=== PATIENT | female | born 1995 | race Hispanic/Latino ===

== ENCOUNTER 2019-02-03 13:03 | Emergency (ER) | payer SELFPAY ==
[2019-02-03 14:32] LABS: Absolute Lymphocytes (CBC) 2.3 K/uL (0.7-4.9); Basophils % 0.5 % (0-1.3); Hematocrit 40.1 % (36.0-45.0); Lymphocytes % 38.2 % (15.3-44.8); MPV 7.1 fL (7.6-11.3); RBC Red Blood Cell Count 4.62 M/uL (3.86-4.86)
[2019-02-03 14:51] LABS: BUN Blood Urea Nitrogen 11 mg/dL (7-18); Bicarbonate 26 mmol/L (21-32); Glucose Level 316 mg/dL (74-106); Potassium 3.7 mmol/L (3.5-5.1); Sodium Level 136 mmol/L (136-145)
--- NOTE | 2019-02-03 14:56 | EDPHYS ---
Physician Documentation [facility] Name: Florence Anguiano Age: 23 yrs Sex: Female : 1995 Arrival Date: 02/03/2019 Time: 13:06 Bed 28 Private MD: ED Physician Ross Kearns HPI: 02/03 13:35 This 23 yrs old Female presents to ER via Ambulatory with complaints of pm1 Vaginal Bleeding. 13:35 The patient presents with vaginal bleeding that is with clots. Onset: The pm1 symptoms/episode began/occurred last night. Modifying factors: The symptoms are alleviated by nothing, the symptoms are aggravated by nothing. Associated signs and symptoms: Pertinent negatives: diarrhea, dysuria, fever, nausea, urinary frequency, vaginal discharge, vomiting. Severity of symptoms: in the emergency department the symptoms have improved. The patient is sexually active. The patient's method of control includes nothing. 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 - Social history:: Smoking status: Patient/guardian denies using tobacco. - Ebola Screening: : Patient denies travel to an Ebola-affected area in the 21 days before illness onset. ROS: 14:04 Positive for vaginal bleeding, Negative for burning with urination, vaginal pm1 discharge. 14:04 Constitutional: Negative for fever, chills, and weight loss, Cardiovascular: Negative for chest pain, palpitations, and edema, Respiratory: Negative for shortness of breath, cough, wheezing, and pleuritic chest pain, Abdomen/GI: Negative for abdominal pain, nausea, vomiting, diarrhea, and constipation, Back: Negative for injury and pain, MS/Extremity: Negative for injury and deformity, Skin: Negative for injury, rash, and discoloration, Neuro: Negative for headache, weakness, numbness, tingling, and seizure. Exam: 14:04 Constitutional: This is a well developed, well nourished patient who is awake, alert, pm1 and in no acute distress. Head/Face: Normocephalic, atraumatic. Neck: Trachea midline, no thyromegaly or masses palpated, and no cervical lymphadenopathy. Supple, full range of motion without nuchal rigidity, or vertebral point tenderness. No Meningismus. Chest/axilla: Normal chest wall appearance and motion. Nontender with no deformity. No lesions are appreciated. Cardiovascular: Regular rate and rhythm with a normal S1 and S2. No gallops, murmurs, or rubs. Normal PMI, no JVD. No pulse deficits. Respiratory: Lungs have equal breath sounds bilaterally, clear to auscultation and percussion. No rales, rhonchi or wheezes noted. No increased work of breathing, no retractions or nasal flaring. Abdomen/GI: Soft, non-tender, with normal bowel sounds. No distension or tympany. No guarding or rebound. No evidence of tenderness throughout. Back: No spinal tenderness. No costovertebral tenderness. Full range of motion. Skin: Warm, dry with normal turgor. Normal color with no rashes, no lesions, and no evidence of cellulitis. MS/ Extremity: Pulses equal, no cyanosis. Neurovascular intact. Full, normal range of motion. 14:04 Neuro: Orientation: is normal, Motor: is normal, moves all fours. Vital Signs: 13:19 BP 129 / 67; Pulse 90; Resp 18; Temp 97.8; Pulse Ox 96% on R/A; Weight 108.86 kg; ph Height 5 ft. 2 in. (157.48 cm); Pain 0/10; 13:19 Body Mass Index 43.90 (108.86 kg, 157.48 cm) ph MDM: 14:01 Patient medically screened. pm1 14:54 Data reviewed: vital signs. Data interpreted: Pulse oximetry: on room air is 96 %. pm1 Interpretation: normal. Counseling: I had a detailed discussion with the patient and/or guardian regarding: the historical points, exam findings, and any diagnostic results supporting the discharge/admit diagnosis, lab results, the need for outpatient follow up, to return to the emergency department if symptoms worsen or persist or if there are any questions or concerns that arise at home. 02/03 14:02 Order name: Urine Dipstick--Ancillary (enter results); Complete Time: 15:30 em1 02/03 14:02 Order name: Urine --Ancillary (enter results); Complete Time: 15:30 em1 02/03 13:31 Order name: Urine Test (obtain specimen); Complete Time: 14:00 pm1 02/03 13:31 Order name: Urine Dipstick-Ancillary (obtain specimen); Complete Time: 14:00 pm1 02/03 14:02 Order name: CBC with Diff; Complete Time: 14:54 pm1 02/03 14:02 Order name: BMP; Complete Time: 14:54 pm1 Administered Medications: No medications were administered Disposition: 02/04 07:29 Co-signature as Attending Physician, Ross Kearns MD I agree with the assessment and kdr plan of care. Disposition: 02/03/19 14:55 Discharged to Home. Impression: Abnormal uterine and vaginal bleeding, unspecified. - Condition is Stable. - Discharge Instructions: Abnormal Uterine Bleeding. - Medication Reconciliation Form, Thank You Letter, Antibiotic Education, Prescription Opioid Use form. - Follow up: Emergency Department; When: As needed; Reason: Worsening of condition. Follow up: Private Physician; When: 2 - 3 days; Reason: Recheck today's complaints, Continuance of care, Re-evaluation by your physician. - Problem is new. - Symptoms have improved. Signatures: Dispatcher [employer] EDMS Shani Jasso RN RN aj1 Ross Kearns MD MD [facility] Anais Meléndez RN RN Salvador Nugent NP TRANSIT PLANNING MANAGER pm1 Corrections: (The following items were deleted from the chart) 02/03 15:20 14:55 02/03/2019 14:55 Discharged to Home. Impression: Abnormal uterine and vaginal aj1 bleeding, unspecified. Condition is Stable. Forms are Medication Reconciliation Form, Thank You Letter, Antibiotic Education, Prescription Opioid Use. Follow up: Emergency Department; When: As needed; Reason: Worsening of condition. Follow up: Private Physician; When: 2 - 3 days; Reason: Recheck today's complaints, Continuance of care, Re-evaluation by your physician. Problem is new. Symptoms have improved. pm1
--- NOTE | 2019-02-03 14:56 | ER ---
Nurse's Notes [facility] Name: Florence Anguiano Age: 23 yrs Sex: Female : 1995 Arrival Date: 02/03/2019 Time: 13:06 Bed 28 Private MD: Diagnosis: Abnormal uterine and vaginal bleeding, unspecified Presentation: 02/03 13:17 Presenting complaint: Patient states: Vaginal bleeding w/ clots that began yesterday, ph cramping last night, reports irregular menses w/ possibility of . Transition of care: patient was not received from another setting of care. Onset of symptoms was February 03, 2019. Risk Assessment: Do you want to hurt yourself or someone else? Patient reports no desire to harm self or others. Initial Sepsis Screen: Does the patient meet any 2 criteria? No. Patient's initial sepsis screen is negative. Does the patient have a suspected source of infection? No. Patient's initial sepsis screen is negative. Care prior to arrival: None. 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 - Social history:: Smoking status: Patient/guardian denies using tobacco. - Ebola Screening: : Patient denies travel to an Ebola-affected area in the 21 days before illness onset. Screenin:03 Abuse screen: Denies threats or abuse. Denies injuries from another. Nutritional aj1 screening: No deficits noted. Tuberculosis screening: No symptoms or risk factors identified. 15:19 Fall Risk None identified. aj1 Assessment: 14:03 General: Appears in no apparent distress. comfortable, Behavior is calm, cooperative, aj1 appropriate for age. Pain: Denies pain. Neuro: Level of Consciousness is awake, alert, obeys commands, Oriented to person, place, time, situation. Cardiovascular: Patient's skin is warm and dry. Respiratory: Airway is patent Respiratory effort is even, unlabored, Respiratory pattern is regular, symmetrical. GI: No signs and/or symptoms were reported involving the gastrointestinal system. Patient currently denies abdominal pain. : Urine is clear, blood tinged, Reports vaginal bleeding that is bright red, with clots. EENT: No signs and/or symptoms were reported regarding the EENT system. Derm: No signs and/or symptoms reported regarding the dermatologic system. Skin is pink, warm \T\ dry. normal. Musculoskeletal: No signs and/or symptoms reported regarding the musculoskeletal system. Circulation, motion, and sensation intact. 15:18 Reassessment: Patient appears in no apparent distress at this time. No changes from aj1 previously documented assessment. Patient and/or family updated on plan of care and expected duration. Pain level reassessed. Patient is alert, oriented x 3, equal unlabored respirations, skin warm/dry/pink. Vital Signs: 13:19 BP 129 / 67; Pulse 90; Resp 18; Temp 97.8; Pulse Ox 96% on R/A; Weight 108.86 kg; ph Height 5 ft. 2 in. (157.48 cm); Pain 0/10; 13:19 Body Mass Index 43.90 (108.86 kg, 157.48 cm) ph ED Course: 13:06 Patient arrived in ED. mr 13:18 Triage completed. ph 13:19 Arm band placed on Patient placed in waiting room, Patient notified of wait time. ph 13:28 Kacy Montilla, RN is Primary Nurse. ca1 13:31 Salvador Nugent NP is PHCP. pm1 13:31 Ross Kearns MD is Attending Physician. pm1 14:02 Shani Jasso, CHELSY is Primary Nurse. aj1 14:03 Patient has correct armband on for positive identification. Bed in low position. Call aj1 light in reach. Side rails up X 1. 14:03 No provider procedures requiring assistance completed. aj1 14:15 Initial lab(s) drawn, by va, sent to lab. Inserted saline lock: 20 gauge in left lt1 antecubital area, using aseptic technique. 15:19 IV discontinued, intact, bleeding controlled, No redness/swelling at site. Pressure aj1 dressing applied. Administered Medications: No medications were administered Outcome: 14:55 Discharge ordered by . pm1 15:19 Discharged to home ambulatory. aj1 15:19 Condition: good 15:19 Discharge instructions given to patient, Instructed on discharge instructions, follow up and referral plans. Demonstrated understanding of instructions, follow-up care. 15:20 Patient left the ED. aj1 Signatures: Shani Jasso RN RN aj1 Block, Anyi mr Anais Meléndez RN RN ph Salvador Nugent, LABELING ASSOCIATE LABELING ASSOCIATE pm1 Kacy Montilla RN RN [facility] Ebony Lamar lt1
[2019-02-03 15:17] LABS: Urine Blood 3+ (NEG); Urine Glucose 2+ (NEG); Urine Protein TRACE (NEG)
[2019-02-03 17:03] VITALS: BP 129/67; TEMP 97.8; O2SAT 96
== END 2019-02-03 15:20 | disposition home or self-care (01) ==
LOC: ER 13:03
DX: N93.9 Abnormal uterine and vaginal bleeding, unspecified (principal); Z88.6 Allergy status to analgesic agent
CPT/HCPCS: 36415; 80048; 81003; 81025; 85025; 99283

== ENCOUNTER 2020-04-01 21:55 | Emergency (ER) | payer SELFPAY ==
--- OUTSIDE RECORDS SUMMARY | 2020-04-01 21:58 | XMS REPORT | Continuity of Care Document ---
:1995 Author Organization [facility] t Address [address] [place] [address] Care Team Providers Name Role Phone Unavailable Unavailable Unavailable Problems This patient has no known problems. Allergies, Adverse Reactions, Alerts This patient has no known allergies or adverse reactions. Medications This patient has no known medications. Procedures This patient has no known procedures. Encounters Start End Encounter Admission Attending Care Care Encounter Source Date/Time Date/Time Type Type Clinicians Facility Department ID 2018-09-22 2018-09-22 Emergency E [id number] [facility] 23:58:00 23:58:00 Results This patient has no known results.
[2020-04-01] MEDS ORDERED: ONDANSETRON 4 MG/2 ML VIAL ONE (23:02)
[2020-04-01] MEDS ORDERED: NA CHLORIDE 0.9% 1,000 ML ONE (23:03)
[2020-04-01 23:30] LABS: ALT/SGPT 119 U/L (12-78); AST/SGOT 84 U/L (15-37); Albumin 3.7 g/dL (3.4-5.0); Alkaline Phosphatase 62 U/L (45-117); BUN Blood Urea Nitrogen 12 mg/dL (7-18); Bicarbonate 29 mmol/L (21-32); Bilirubin Direct < 0.1 mg/dL (0-0.2); Bilirubin Total 0.3 mg/dL (0.2-1.0); Glucose Level 153 mg/dL (74-106); Sodium Level 138 mmol/L (136-145)
[2020-04-01 23:41] LABS: Absolute Lymphocytes (CBC) 2.8 K/uL (0.7-4.9); Basophils % 0.7 % (0-1.3); Hematocrit 43.7 % (36.0-45.0); Lymphocytes % 38.7 % (15.3-44.8); MPV 7.5 fL (7.6-11.3); RBC Red Blood Cell Count 4.96 M/uL (3.86-4.86)
[2020-04-02 00:13] LABS: SARS-COV-2 RT PCR POSITIVE (NEGATIVE)
--- NOTE | 2020-04-02 01:11 | EDPHYS ---
Physician Documentation [facility] Name: Florence Anguiano Age: 24 yrs Sex: Female : 1995 Arrival Date: 04/01/2020 Time: 21:59 Bed 6 Private MD: ED Physician Fan De Los Santos HPI: 04/01 22:28 This 24 yrs old Female presents to ER via Ambulatory with complaints of Cough, mh7 Dizziness, Chest Congestion, Fever. 22:28 The patient or guardian reports cough, that is constant, described as moderate, flu mh7 symptoms, low-grade fever, myalgias. Onset: The symptoms/episode began/occurred 3 day(s) ago. Severity of symptoms: At their worst the symptoms were moderate, yesterday, in the emergency department the symptoms have improved, moderately. Modifying factors: The symptoms are alleviated by nothing, the symptoms are aggravated by nothing. Associated signs and symptoms: Pertinent positives: fever, nausea, sore throat, Pertinent negatives: chest pain, diarrhea, ear ache, vomiting. 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 - Social history:: Smoking status: Patient denies any tobacco usage or history of. ROS: 22:28 Eyes: Negative for injury, pain, redness, and discharge, Neck: Negative for injury, mh7 pain, and swelling, Cardiovascular: Negative for chest pain, palpitations, and edema, Back: Negative for injury and pain, : Negative for injury, bleeding, discharge, and swelling, MS/Extremity: Negative for injury and deformity, Skin: Negative for injury, rash, and discoloration, Neuro: Negative for headache, weakness, numbness, tingling, and seizure, Psych: Negative for depression, anxiety, suicide ideation, homicidal ideation, and hallucinations, Allergy/Immunology: Negative for hives, rash, and allergies, Endocrine: Negative for neck swelling, polydipsia, polyuria, polyphagia, and marked weight changes, Hematologic/Lymphatic: Negative for swollen nodes, abnormal bleeding, and unusual bruising. Exam: 22:28 Constitutional: This is a well developed, well nourished patient who is awake, alert, mh7 and in no acute distress. Head/Face: Normocephalic, atraumatic. Eyes: Pupils equal round and reactive to light, extra-ocular motions intact. Lids and lashes normal. Conjunctiva and sclera are non-icteric and not injected. Cornea within normal limits. Periorbital areas with no swelling, redness, or edema. ENT: Nares patent. No nasal discharge, no septal abnormalities noted. Tympanic membranes are normal and external auditory canals are clear. Oropharynx with no redness, swelling, or masses, exudates, or evidence of obstruction, uvula midline. Mucous membranes moist. Neck: Trachea midline, no thyromegaly or masses palpated, and no cervical lymphadenopathy. Supple, full range of motion without nuchal rigidity, or vertebral point tenderness. No Meningismus. Chest/axilla: Normal chest wall appearance and motion. Nontender with no deformity. No lesions are appreciated. Cardiovascular: Regular rate and rhythm with a normal S1 and S2. No gallops, murmurs, or rubs. Normal PMI, no JVD. No pulse deficits. Respiratory: Lungs have equal breath sounds bilaterally, clear to auscultation and percussion. No rales, rhonchi or wheezes noted. No increased work of breathing, no retractions or nasal flaring. Abdomen/GI: Soft, non-tender, with normal bowel sounds. No distension or tympany. No guarding or rebound. No evidence of tenderness throughout. Back: No spinal tenderness. No costovertebral tenderness. Full range of motion. Skin: Warm, dry with normal turgor. Normal color with no rashes, no lesions, and no evidence of cellulitis. MS/ Extremity: Pulses equal, no cyanosis. Neurovascular intact. Full, normal range of motion. Neuro: Awake and alert, GCS 15, oriented to person, place, time, and situation. Cranial nerves II-XII grossly intact. Motor strength 5/5 in all extremities. Sensory grossly intact. Cerebellar exam normal. Normal gait. Psych: Awake, alert, with orientation to person, place and time. Behavior, mood, and affect are within normal limits. Vital Signs: 22:08 BP 161 / 85; Pulse 98; Resp 16 S; Temp 98.6(TE); Pulse Ox 99% on R/A; Weight 108.86 kg ca1 (R); Height 5 ft. 2 in. (157.48 cm) (R); 23:30 BP 109 / 96; Pulse 79; Resp 18; Pulse Ox 98% on R/A; ea 04/02 00:21 BP 131 / 85; Pulse 79; Resp 18; Pulse Ox 99% on R/A; ea 01:23 BP 137 / 83; Pulse 79; Resp 17; Temp 98; Pulse Ox 100% on R/A; rv 04/01 22:08 Body Mass Index 43.90 (108.86 kg, 157.48 cm) ca1 MDM: 01:06 Differential Diagnosis: Bronchitis Influenza Upper Respiratory Infection Pharyngitis 7 Allergic Rhinitis Viral Syndrome Pneumonia. Data reviewed: vital signs, nurses notes, lab test result(s), CBC, electrolytes, Flu: negative urinalysis, UPT: negative EKG, radiologic studies, plain films. Data interpreted: Pulse oximetry: on room air is 99 %. Interpretation: normal. Counseling: I had a detailed discussion with the patient and/or guardian regarding: the historical points, exam findings, and any diagnostic results supporting the discharge/admit diagnosis, lab results, radiology results, the need for outpatient follow up, to return to the emergency department if symptoms worsen or persist or if there are any questions or concerns that arise at home. Response to treatment: the patient's symptoms have resolved after treatment, the patient's blood pressure is in an acceptable range, mental status has returned to baseline, the patient no longer shows bradycardia, the patient is not short of breath, the patient is not tachycardic, the patient's pain is gone, the patient's temperature has normalized. 01:10 Patient medically screened. [facility] 04/01 22:25 Order name: CBC with Diff; Complete Time: 23:55 [facility] 04/01 22:25 Order name: Basic Metabolic Panel; Complete Time: 23:55 [facility] 04/01 22:25 Order name: LFT's; Complete Time: 23:55 [facility] 04/01 22:25 Order name: Rapid Strep; Complete Time: 00:51 [facility] 04/01 22:25 Order name: Chest Single View XRAY [facility] 04/02 00:14 Order name: COVID-19/FLU A+B; Complete Time: 00:15 EDMS 04/02 00:41 Order name: Urine Dipstick--Ancillary (enter results) tt3 04/02 00:41 Order name: Urine --Ancillary (enter results) tt3 04/02 00:45 Order name: Throat Culture [facility] 04/01 22:25 Order name: Urine Dipstick-Ancillary (obtain specimen); Complete Time: 00:34 [facility] 04/01 22:25 Order name: Urine Test (obtain specimen); Complete Time: 00:34 [facility] 04/01 22:26 Order name: EKG - Nurse/Tech; Complete Time: 23:00 [facility] Administered Medications: 04/01 22:59 Drug: NS 0.9% 1000 ml Route: IV; Rate: 1000 ml; Site: right antecubital; ea 22:59 Drug: Zofran (Ondansetron) 4 mg Route: IVP; Site: right antecubital; ea 04/02 01:22 Follow up: Response: No adverse reaction rv :22 Drug: KeFLEX 500 mg Route: PO; rv : Follow up: Response: Medication administered at discharge. rv Disposition: 04/02/20 01:10 Discharged to Home. Impression: Coronavirus infection, unspecified, Urinary tract infection, site not specified. - Condition is Stable. - Discharge Instructions: Urinary Tract Infection, Adult, Bwdr-ec-Busn, Viral Respiratory Infection, [id number]-Ddeb, COVID-19. - Prescriptions for Zofran ODT 4 mg Oral tablet,disintegrating - place 1 tablet by TRANSLINGUAL route every 8 hours As needed; 6 tablet. Keflex 500 mg Oral Capsule - take 1 capsule by ORAL route every 12 hours for 7 days; 14 capsule. Zithromax Z- Jose 250 mg Oral Tablet - take 1 tablet by ORAL route as directed for 5 days Day 1 - take two (2) tablets one time. Day 2, 3, 4 , 5 take one (1) tablet once daily.; 6 tablet. Albuterol Sulfate 90 mcg/actuation - inhale 1-2 puff by INHALATION route every 4-6 hours; 1 Inhaler. - Medication Reconciliation Form, Thank You Letter, Antibiotic Education, Prescription Opioid Use, Work release form form. - Follow up: Private Physician; When: 1 - 2 days; Reason: Trouble breathing, Worsening of condition, Recheck today's complaints, Continuance of care, Re-evaluation by your physician. - Problem is new. - Symptoms have improved. Signatures: Dispatcher [employer] EDWI Sarah Ley, RN Jameel Bird ea, RN RN rv Acob, Cheryl RN RN Fan Cartagena MD MD [facility] Corrections: (The following items were deleted from the chart) 04/01 22:30 22:27 This 24 yrs old Female presents to ER via Ambulatory with complaints of 7 Cough, Dizziness, Chest Pain, Fever. [facility] 23:12 22:25 Influenza Screen (A \T\ B)+BA.LAB.BRZ ordered. EDWI EDWI 23:13 22:26 CORONAVIRUS+MR.LAB.BRZ ordered. [facility] 04/02 01:23 01:10 04/02/2020 01:10 Discharged to Home. Impression: Coronavirus infection, rv unspecified; Urinary tract infection, site not specified. Condition is Stable. Forms are Medication Reconciliation Form, Thank You Letter, Antibiotic Education, Prescription Opioid Use. Follow up: Private Physician; When: 1 - 2 days; Reason: Trouble breathing, Worsening of condition, Recheck today's complaints, Continuance of care, Re-evaluation by your physician. Problem is new. Symptoms have improved. [facility]
--- NOTE | 2020-04-02 01:11 | ER ---
Nurse's Notes [facility] Name: Florence Anguiano Age: 24 yrs Sex: Female : 1995 Arrival Date: 04/01/2020 Time: 21:59 Bed 6 Private MD: Diagnosis: Coronavirus infection, unspecified;Urinary tract infection, site not specified Presentation: 04/01 22:08 Chief complaint: Patient states: Feeling sick since yesterday. Cough, dizziness, ca1 headache, chest congestion, fever, nausea since yesterday. Coronavirus screen: Client denies travel out of the [place] in the last 14 days. chills, congestion, cough unrelated to allergies, headache, nausea, Client presents with at least one sign or symptom that may indicate coronavirus-19. Standard/surgical mask placed on the client. Provider contacted for isolation considerations. Ebola Screen: Patient negative for fever greater than or equal to 101.5 degrees Fahrenheit, and additional compatible Ebola Virus Disease symptoms Patient denies exposure to infectious person. Patient denies travel to an Ebola-affected area in the 21 days before illness onset. No symptoms or risks identified at this time. Initial Sepsis Screen: Does the patient meet any 2 criteria? No. Patient's initial sepsis screen is negative. Does the patient have a suspected source of infection? No. Patient's initial sepsis screen is negative. Risk Assessment: Do you want to hurt yourself or someone else? Patient reports no desire to harm self or others. Onset of symptoms was April 01, 2020. 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 - Social history:: Smoking status: Patient denies any tobacco usage or history of. Screenin:37 Abuse screen: Denies threats or abuse. Nutritional screening: No deficits noted. ea Tuberculosis screening: No symptoms or risk factors identified. Fall Risk IV access (20 points). Assessment: 22:30 General: Appears uncomfortable, Behavior is appropriate for age. Pain: Complains of ea pain in chest Pain does not radiate. Neuro: Level of Consciousness is awake, alert, obeys commands, Oriented to person, place, time, situation. Cardiovascular: Patient's skin is warm and dry. Respiratory: Airway is patent Respiratory effort is even, unlabored, Respiratory pattern is regular, symmetrical. Derm: Skin is pink, warm \T\ dry. Vital Signs: 22:08 BP 161 / 85; Pulse 98; Resp 16 S; Temp 98.6(TE); Pulse Ox 99% on R/A; Weight 108.86 kg ca1 (R); Height 5 ft. 2 in. (157.48 cm) (R); 23:30 BP 109 / 96; Pulse 79; Resp 18; Pulse Ox 98% on R/A; ea 04/02 00:21 BP 131 / 85; Pulse 79; Resp 18; Pulse Ox 99% on R/A; ea 01:23 BP 137 / 83; Pulse 79; Resp 17; Temp 98; Pulse Ox 100% on R/A; rv 04/01 22:08 Body Mass Index 43.90 (108.86 kg, 157.48 cm) ca1 ED Course: 04/01 21:59 Patient arrived in ED. cf2 22:02 Fan De Los Santos MD is Attending Physician. mh7 22:05 Sarah Ley, CHELSY is Primary Nurse. ea 22:10 Triage completed. ca1 22:11 Arm band placed on right wrist. ca1 22:30 Patient has correct armband on for positive identification. monitor worker on. Pulse ea ox on. NIBP on. 22:49 Chest Single View XRAY In Process Unspecified. EDMS 23:00 Inserted saline lock: 20 gauge in right antecubital area, using aseptic technique. ea 23:37 Patient maintains SpO2 saturation greater than 95% on room air. ea 04/02 01:23 No provider procedures requiring assistance completed. IV discontinued, intact, rv bleeding controlled, No redness/swelling at site. Pressure dressing applied. Administered Medications: 04/01 22:59 Drug: NS 0.9% 1000 ml Route: IV; Rate: 1000 ml; Site: right antecubital; ea 22:59 Drug: Zofran (Ondansetron) 4 mg Route: IVP; Site: right antecubital; ea 04/02 01:22 Follow up: Response: No adverse reaction rv 01:22 Drug: KeFLEX 500 mg Route: PO; rv : Follow up: Response: Medication administered at discharge. rv Outcome: 01:10 Discharge ordered by . mhAubree : Discharged to home ambulatory. rv : Condition: good : Discharge instructions given to patient, Instructed on discharge instructions, follow up and referral plans. medication usage, Demonstrated understanding of instructions, follow-up care, medications, Prescriptions given X 4. : Patient left the ED. rv Signatures: Dispatcher [employer] EDMS Sarah Ley RN Jameel Bird ea, RN RN Kacy Dumont RN RN Aroldo Roman 2 Fan De Los Santos MD MD mh7
[2020-04-02] MEDS ORDERED: CEPHALEXIN 250 MG CAP ONE (01:26)
[2020-04-02 01:31] VITALS: BP 137/83; TEMP 98; O2SAT 100
[2020-04-02 02:58] LABS: Urine Blood 2+ (NEG); Urine Glucose NEGATIVE (NEG); Urine Protein NEGATIVE (NEG); Urine Specific Gravity 1.025 (1.005-1.030)
--- NOTE | 2020-04-02 11:01 | RAD REPORT ---
EXAM DESCRIPTION: RAD - Chest Single View - 04/01/2020 10:49 pm Chest Single View CLINICAL HISTORY: 24 years Female COUGH COMPARISON: None. FINDINGS: The cardiomediastinal silhouette appears unremarkable. No consolidating infiltrates or pleural effusions. No pneumothorax. IMPRESSION: No acute abnormality is identified. Electronically signed by: Noe Dunbar MD 04/02/2020 12:13 AM SHIPPING [employer] RECEIVING [employer]AD Due to temporary technical issues with the PACS/Fluency reporting system, reports are being signed by the in house radiologists without review as a courtesy to insure prompt reporting. The interpreting radiologist is fully responsible for the content of the report.
--- NOTE | 2020-04-02 11:28 | EKG ---
Test Date: 2020-04-01 Test Time: 22:55:43 Hvac Engineer: LUCRETIA MEASUREMENT RESULTS: Intervals: Rate: 80 MO: 148 QRSD: 82 QT: 376 QTc: 433 [place]: P: 22 MO: 148 QRS: 44 T: 28 INTERPRETIVE STATEMENTS: Normal sinus rhythm Normal ECG No previous ECG available for comparison Electronically Signed On 04-02-20 11:27:14 BEAD PREPARER by Ronald Del Rosario
== END 2020-04-02 01:23 | disposition home or self-care (01) ==
LOC: ER 21:55
DX: U07.1 COVID-19 (principal); N39.0 Urinary tract infection, site not specified; E11.9 Type 2 diabetes mellitus without complications
CPT/HCPCS: 0240U; 36415; 71045; 80048; 80076; 81003; 81025; 85025; 87070; 87081; 93005; 96374; 99285; J2405; J7030

== ENCOUNTER 2020-06-28 14:05 | Emergency (ER) | payer SELFPAY ==
--- OUTSIDE RECORDS SUMMARY | 2020-06-28 14:08 | XMS REPORT | Continuity of Care Document ---
:1995 Author Organization [facility] t Address [address] [place] [address] Care Team Providers Name Role Phone Unavailable [...]
--- NOTE | 2020-06-28 15:52 | EDPHYS ---
Physician Documentation [facility] Name: Florence Anguiano Age: 24 yrs Sex: Female : 1995 Arrival Date: 06/28/2020 Time: 14:12 Bed Waiting Private MD: ED Physician Ross Kearns HPI: 06/28 15:48 This 24 yrs old Female presents to ER via Ambulatory with complaints of jmm Allergic Reaction. 15:48 The patient presents with itching, localized swelling, rash, redness of skin. Onset: jmm The symptoms/episode began/occurred gradually, just prior to arrival. Associated signs and symptoms: Pertinent positives: hives, Pertinent negatives: shortness of breath, vomiting. Possible causes: At home the patient or guardian has treated the symptoms with Benadryl. The patient has experienced similar episodes in the past. Patient states symptoms have improved. Denies vomiting or sob. Historical: - Allergies: 15:16 Tylenol; iw - PMHx: 15:16 Diabetes - NIDDM; iw - PSHx: 15:16 None; iw ROS: 15:48 Constitutional: Negative for fever, chills, and weight loss, Cardiovascular: Negative jmm for chest pain, palpitations, and edema, Respiratory: Negative for shortness of breath, cough, wheezing, and pleuritic chest pain. 15:48 Skin: Positive for rash. 15:48 All other systems are negative. Exam: 15:48 Constitutional: This is a well developed, well nourished patient who is awake, alert, jmm and in no acute distress. 15:48 Neck: Trachea midline, Supple Chest/axilla: Normal chest wall appearance and motion. Cardiovascular: Regular rate and rhythm. No edema appreciated Respiratory: Normal respirations, no respiratory distress appreciated Abdomen/GI: Non distended, soft Back: Normal ROM Skin: General appearance color normal MS/ Extremity: Moves all extremities, no obvious deformities appreciated, no edema noted to the lower extremities Neuro: Awake and alert, normal gait Psych: Behavior is normal, Mood is normal, Patient is cooperative and pleasant 15:48 Head/face: Noted is erythema, that is mild. 15:48 ENT: Posterior pharynx: is normal, no edema appreciated. Vital Signs: 15:14 BP 146 / 90; Pulse 89; Resp 16; Temp 97.7; Pulse Ox 100% on R/A; iw MDM: 15:50 Data reviewed: vital signs, nurses notes. Counseling: I had a detailed discussion with shorty the patient and/or guardian regarding: the historical points, exam findings, and any diagnostic results supporting the discharge/admit diagnosis, the need for outpatient follow up, to return to the emergency department if symptoms worsen or persist or if there are any questions or concerns that arise at home. ED course: Patient is alert and non toxic in appearance. No pharyngeal edema appreciated, I do not suspect anaphylaxis. Patient given strict return precautions. Patient understood and agrees with the plan of care. . 15:51 Patient medically screened. [facility] Administered Medications: No medications were administered Disposition: 06/28/20 15:51 Discharged to Home. Impression: Urticaria, unspecified. - Condition is Stable. - Discharge Instructions: Hives. - Prescriptions for Hydroxyzine HCl 25 mg Oral Tablet - take 1 tablet by ORAL route every 6 hours As needed; 30 tablet. Prednisone 20 mg Oral Tablet - take 3 tablet by ORAL route once daily for 5 days; 15 tablet. - Medication Reconciliation Form, Thank You Letter, Antibiotic Education, Prescription Opioid Use, Work release form form. - Follow up: Private Physician; When: 2 - 3 days; Reason: Recheck today's complaints, Continuance of care, Re-evaluation by your physician. Addendum: 06/30/2020 07:18 Co-signature as Attending Physician, Ross Kearns MD I agree with the assessment and k dr plan of care. Signatures: Ross Kearns MD MD [facility] Gutierrez Lou PA PA [facility] Maye Monzon RN RN iw Corrections: (The following items were deleted from the chart) 06/28 16:10 15:51 06/28/2020 15:51 Discharged to Home. Impression: Urticaria, unspecified. iw Condition is Stable. Forms are Medication Reconciliation Form, Thank You Letter, Antibiotic Education, Prescription Opioid Use. Follow up: Private Physician; When: 2 - 3 days; Reason: Recheck today's complaints, Continuance of care, Re-evaluation by your physician. shorty
--- NOTE | 2020-06-28 15:52 | ER ---
Nurse's Notes [facility] Name: Florence Anguiano Age: 24 yrs Sex: Female : 1995 Arrival Date: 06/28/2020 Time: 14:12 Bed Waiting Private MD: Diagnosis: Urticaria, unspecified Presentation: 06/28 15:14 Chief complaint: Patient states: was at work today and started breaking out in her iw face, was having an allergic reaction to something, had redness in her face, took a Benadryl and it got better but her job wants her to be cleared. Coronavirus screen: At this time, the client does not indicate any symptoms associated with coronavirus-19. Ebola Screen: Patient negative for fever greater than or equal to 101.5 degrees Fahrenheit, and additional compatible Ebola Virus Disease symptoms Patient denies exposure to infectious person. Patient denies travel to an Ebola-affected area in the 21 days before illness onset. No symptoms or risks identified at this time. Initial Sepsis Screen: Does the patient meet any 2 criteria? No. Patient's initial sepsis screen is negative. Does the patient have a suspected source of infection? No. Patient's initial sepsis screen is negative. Risk Assessment: Do you want to hurt yourself or someone else? Patient reports no desire to harm self or others. Onset of symptoms was June 28, 2020. 15:14 Method Of Arrival: Ambulatory 15:14 Acuity: HELENA 4 iw Historical: - Allergies: 15:16 Tylenol; iw - PMHx: 15:16 Diabetes - NIDDM; iw - PSHx: 15:16 None; iw Vital Signs: 15:14 BP 146 / 90; Pulse 89; Resp 16; Temp 97.7; Pulse Ox 100% on R/A; iw ED Course: 14:12 Patient arrived in ED. am2 15:16 Triage completed. iw 15:18 Arm band placed on. 15:48 Gutierrez Lou PA is PHCP. shorty 15:48 Ross Kearns MD is Attending Physician. shorty Administered Medications: No medications were administered Outcome: 15:51 Discharge ordered by . shorty 16:10 Patient left the ED. Signatures: Gutierrez Lou PA PA jmm Williams, Irene, RN RN iw Best, Mirian am2
== END 2020-06-28 16:10 | disposition home or self-care (01) ==
LOC: ER 14:05
DX: L50.9 Urticaria, unspecified (principal); E11.9 Type 2 diabetes mellitus without complications; Z88.6 Allergy status to analgesic agent
CPT/HCPCS: 99281

== ENCOUNTER 2020-12-27 13:21 | Emergency (ER) | payer SELFPAY ==
--- NOTE | 2020-12-27 14:10 | RAD REPORT ---
EXAM DESCRIPTION: CT - Head Brain Wo Cont - 12/27/2020 2:02 pm CLINICAL HISTORY: right sided head injury, blunt force trauma, persistent headache COMPARISON: No comparisons TECHNIQUE: Axial 5 mm thick images of the head were obtained without IV contrast. All CT scans are performed using dose optimization technique as appropriate and may include automated exposure control or mA/KV adjustment according to patient size. FINDINGS: No intracranial hemorrhage, mass, edema or shift of mid-line structures. No acute infarcti on changes seen. No abnormal extra-axial fluid collections. Ventricles are normal. Mastoid air cells and visualized portions of the paranasal sinuses are clear. No acute bony findings. IMPRESSION: Negative non-contrast CT head examination.
[2020-12-27] MEDS ORDERED: KETOROLAC 30 MG/ML INJ ONE (15:22)
[2020-12-27] MEDS ORDERED: DIAZEPAM 5 MG TABLET ONE (15:22)
[2020-12-27] MEDS ORDERED: METOCLOPRAMIDE 10 MG/2mL INJ ONE (16:00)
[2020-12-27] MEDS ORDERED: NA CHLORIDE 0.9% 250 ML ONE (16:01)
--- NOTE | 2020-12-27 16:55 | EDPHYS ---
Physician Documentation [facility] Name: Florence Anguiano Age: 25 yrs Sex: Female : 1995 Arrival Date: 12/27/2020 Time: 13:22 Bed 10 Private MD: JOHAN Physician Jai Holman HPI: 12/27 13:37 This 25 yrs old Female presents to ER via Ambulatory with complaints of jmm Headache - post head injury. 13:37 The patient complains of pain to the right frontal area and right side of the back of jmm head. Onset: The symptoms/episode began/occurred gradually. Associated signs and symptoms: Pertinent negatives: fever, vomiting. This is a 25-year-old female with a history of diabetes mellitus the presents emerged part with complaints of right-sided headache. Patient states that she hit her head approximately 4 days ago while at work against a metal pole. Denies vomiting but states she now has nausea.. 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 - Social history:: Smoking status: Patient denies any tobacco usage or history of. ROS: 13:37 Constitutional: Negative for fever, chills, and weight loss, Cardiovascular: Negative jmm for chest pain, palpitations, and edema, Respiratory: Negative for shortness of breath, cough, wheezing, and pleuritic chest pain. 13:37 Neuro: Positive for headache. 13:37 All other systems are negative. Exam: 13:37 Constitutional: This is a well developed, well nourished patient who is awake, alert, jmm and in no acute distress. Head/Face: atraumatic. Eyes: EOMI, no conjunctival erythema appreciated ENT: Moist Mucus Membranes Neck: Trachea midline, Supple Chest/axilla: Normal chest wall appearance and motion. Cardiovascular: Regular rate and rhythm. No edema appreciated Respiratory: Normal respirations, no respiratory distress appreciated Abdomen/GI: Non distended, soft Back: Normal ROM Skin: General appearance color normal MS/ Extremity: Moves all extremities, no obvious deformities appreciated, no edema noted to the lower extremities Neuro: Awake and alert, normal gait Psych: Behavior is normal, Mood is normal, Patient is cooperative and pleasant Vital Signs: 13:31 BP 135 / 85; Pulse 110; Resp 21; Temp 97.9; Pulse Ox 100% ; Weight 108.86 kg; Height 5 7 ft. 2 in. (157.48 cm); Pain 8/10; 15:46 BP 119 / 65; Pulse 86; Resp 16; Pulse Ox 100% ; vg1 16:41 BP 113 / 66; Pulse 86; Resp 16; Pulse Ox 100% ; vg1 13:31 Body Mass Index 43.90 (108.86 kg, 157.48 cm) jl7 MDM: 13:37 Patient medically screened. [facility] 16:50 Data reviewed: vital signs, nurses notes. Counseling: I had a detailed discussion with shorty the patient and/or guardian regarding: the historical points, exam findings, and any diagnostic results supporting the discharge/admit diagnosis, radiology results, the need for outpatient follow up, to return to the emergency department if symptoms worsen or persist or if there are any questions or concerns that arise at home. ED course: Patient feeling much better. Most likely has a postconcussive syndrome. Advised to follow-up neurology for further evaluation otherwise given strict return precautions. Patient understood and agrees plan of care.. 12/27 13:43 Order name: CT Head Brain wo Cont; Complete Time: 14:32 [facility] 12/27 15:47 Order name: IV Start; Complete Time: 15:47 vg1 Administered Medications: 15:05 Drug: Ketorolac 30 mg Route: IM; Site: right deltoid; jl7 16:41 Follow up: Response: Marked relief of symptoms vg1 15:05 Not Given (pt drove herself to ER): Valium (diazepam) 2 mg PO once jl7 15:44 Drug: Reglan (metoCLOPramide) 20 mg {Note: medication placed in NS 250 mL at bolus.} vg1 Route: IVP; Site: right antecubital; 16:41 Follow up: Response: Marked relief of symptoms vg1 15:44 Drug: NS 0.9% 250 ml Route: IV; Rate: bolus; Site: right antecubital; vg1 16:41 Follow up: IV Status: Completed infusion; IV Intake: 250ml vg1 Disposition Summary: 12/27/20 16:54 Discharge Ordered Location: Home [facility] Condition: Stable jmm Diagnosis - Headache jmm Followup: m - With: Private Physician - When: 2 - 3 days - Reason: Recheck today's complaints, Continuance of care, Re-evaluation by your physician Followup: m - With: José Luis Ambrose MD - When: 2 - 3 days - Reason: Recheck today's complaints, Continuance of care, Re-evaluation by your physician Discharge Instructions: - Discharge Summary Sheet jmm - Concussion, Adult jmm - Post-Concussion Syndrome jmm - Form - Return To Work es2 Forms: - Medication Reconciliation Form [facility] - Thank You Letter [facility] - Antibiotic Education [facility] - Prescription Opioid Use [facility] - Work release form es2 Addendum: 12/31/2020 06:57 Co-signature as Attending Physician, Jai Holman MD I agree with the assessment and c lópez plan of care. Signatures: Dispatcher [employer] Jai Zavaleta MD MD cha Mickail, Joel, PA PA jmm Leal, Jahala, RN RN jl7 Sharifa Mix RN RN vg1
--- NOTE | 2020-12-27 16:55 | ER ---
Nurse's Notes [facility] Name: Florence Anguiano Age: 25 yrs Sex: Female : 1995 Arrival Date: 12/27/2020 Time: 13:22 Bed 10 Private MD: Diagnosis: Headache Presentation: 12/27 13:31 Chief complaint: Patient states: Hit in the top of the head with a metal stick at work jl7 about a week ago, reports headache and scalp tenderness since then worsening the last 2 days. Coronavirus screen: At this time, the client does not indicate any symptoms associated with coronavirus-19. Ebola Screen: No symptoms or risks identified at this time. Initial Sepsis Screen: Does the patient meet any 2 criteria? No. Patient's initial sepsis screen is negative. Does the patient have a suspected source of infection? No. Patient's initial sepsis screen is negative. Risk Assessment: Do you want to hurt yourself or someone else? Patient reports no desire to harm self or others. Onset of symptoms was December 21, 2020. Care prior to arrival: None. 13:31 Method Of Arrival: Ambulatory [facility] 13:31 Acuity: HELENA 4 jl7 Triage Assessment: 13:32 Headache History: Denies prior headaches. General: Appears in no apparent distress. jl7 uncomfortable, Behavior is calm, cooperative. Pain: Complains of pain in top of head Pain currently is 8 out of 10 on a pain scale. Pain began gradually, Also complains of no other associated symptoms. Neuro: Level of Consciousness is awake, alert, obeys commands, Oriented to person, place, time, situation, Moves all extremities. Full function Gait is steady, Speech is normal. DIRECTOR PHONE: 13:32 LMP 12/21/2020 jl7 Historical: - Allergies: 13:32 Tylenol; jl7 - Home Meds: 13:32 None [Active]; jl7 - PMHx: 13:32 Diabetes - NIDDM; jl7 - PSHx: 13:32 None; jl7 - Immunization history:: Client reports receiving the 2nd dose of the Covid vaccine, Moderna. - Social history:: Smoking status: Patient denies any tobacco usage or history of. Screenin:35 Abuse screen: Denies threats or abuse. Denies injuries from another. Nutritional jl7 screening: No deficits noted. Tuberculosis screening: No symptoms or risk factors identified. Fall Risk None identified. Assessment: 13:35 General: See triage. jl7 15:32 Reassessment: pt feeling nauseated, provider notified. vg1 15:33 Reassessment: Received VO from Carmine RAMIREZ to administer Reglan 20 mg IV in 250 ml NS vg1 bolus. 16:41 Reassessment: Patient appears in no apparent distress at this time. Patient and/or vg1 family updated on plan of care and expected duration. Pain level reassessed. Patient is alert, oriented x 3, equal unlabored respirations, skin warm/dry/pink. Rated pain 3/10. Patient states feeling better. Vital Signs: 13:31 BP 135 / 85; Pulse 110; Resp 21; Temp 97.9; Pulse Ox 100% ; Weight 108.86 kg; Height 5 jl7 ft. 2 in. (157.48 cm); Pain 8/10; 15:46 BP 119 / 65; Pulse 86; Resp 16; Pulse Ox 100% ; vg1 16:41 BP 113 / 66; Pulse 86; Resp 16; Pulse Ox 100% ; vg1 13:31 Body Mass Index 43.90 (108.86 kg, 157.48 cm) jl7 ED Course: 13:22 Patient arrived in ED. am2 13:22 Gutierrez Lou [facility] 13:22 Jai Holman MD is Attending Physician. [facility] 13:32 Triage completed. jl7 13:32 Arm band placed on right wrist. jl7 13:35 Patient has correct armband on for positive identification. jl7 13:35 No provider procedures requiring assistance completed. Patient did not have IV access jl7 during this emergency room visit. 14:02 CT Head Brain wo Cont In Process Unspecified. EDMS 15:06 Candelaria Dennison, CHELSY is Primary Nurse. jl7 15:08 Primary Nurse role handed off by Candelaria Dennison RN vg1 15:08 Sharifa Mix RN is Primary Nurse. vg1 15:40 Inserted saline lock: 20 gauge in right antecubital area, using aseptic technique. vg1 16:54 José Luis Ambrose MD is Referral Physician. m Administered Medications: 15:05 Drug: Ketorolac 30 mg Route: IM; Site: right deltoid; jl7 16:41 Follow up: Response: Marked relief of symptoms vg1 15:05 Not Given (pt drove herself to ER): Valium (diazepam) 2 mg PO once jl7 15:44 Drug: Reglan (metoCLOPramide) 20 mg {Note: medication placed in NS 250 mL at bolus.} vg1 Route: IVP; Site: right antecubital; 16:41 Follow up: Response: Marked relief of symptoms vg1 15:44 Drug: NS 0.9% 250 ml Route: IV; Rate: bolus; Site: right antecubital; vg1 16:41 Follow up: IV Status: Completed infusion; IV Intake: 250ml vg1 Intake: 16:41 IV: 250ml; Total: 250ml. vg1 Outcome: 16:54 Discharge ordered by . shorty 17:07 Discharged to home ambulatory. es2 17:07 Condition: stable 17:07 Discharge instructions given to patient, Instructed on 17:07 Instructed on discharge instructions, Demonstrated understanding of instructions. 17:08 Patient left the ED. es2 Signatures: Dispatcher [employer] EDMS Gutierrez Lou PA PA jmm Leal, Jahala RN RN jl7 Mirian Best Victoria RN RN vg1 Shi Lenz RN RN es2
[2020-12-27 17:21] VITALS: TEMP 97.9; O2SAT 100
[2020-12-27 17:24] VITALS: BP 113/66
== END 2020-12-27 17:08 | disposition home or self-care (01) ==
LOC: ER 13:21
DX: R51.9 Headache, unspecified (principal); E11.9 Type 2 diabetes mellitus without complications; Z88.6 Allergy status to analgesic agent
CPT/HCPCS: 70450; 96365; 96372; 96375; 99283; J2765; J7050

== ENCOUNTER 2021-01-08 15:35 | Emergency (ER) | payer OTHER, SELFPAY ==
[2021-01-08 19:41] LABS: Urine Blood Negative (Negative); Urine Glucose 2+ (Negative); Urine Protein Negative (Negative); Urine Specific Gravity >=1.030 (1.005-1.030); Urine pH 5.5 (5.0-7.0)
[2021-01-08 20:08] LABS: Urine Specific Gravity/Preg >1.030 (1.005-1.030)
[2021-01-08 20:33] LABS: Absolute Lymphocytes (CBC) 2.8 K/uL (0.7-4.9); Basophils % 0.2 % (0-1.3); Hematocrit 40.6 % (36.0-45.0); Lymphocytes % 38.5 % (15.3-44.8); MPV 6.8 fL (7.6-11.3); RBC Red Blood Cell Count 4.76 M/uL (3.86-4.86)
--- NOTE | 2021-01-08 20:35 | RAD REPORT ---
EXAM DESCRIPTION: US - Transvaginal Study Probe - 01/08/2021 8:12 pm CLINICAL HISTORY: Pelvic pain COMPARISON: none FINDINGS: The uterus measures 9 x 4 x 5cm. A fibroid is not seen. Endometrial stripe measures 1 cent imeter The right ovary is normal in size and echotexture. Left ovary not seen secondary to overlying bowel g as The right and left adnexum unremarkable No significant free fluid is seen. IMPRESSION: Unremarkable pelvic ultrasound
[2021-01-08 20:37] LABS: Urine Bacteria <20 /HPF (<20); Urine RBC <5 /HPF (NONE SEEN)
[2021-01-08 20:38] LABS: Urine Mucus 1+ /HPF (NONE SEEN)
[2021-01-08 20:46] LABS: ALT/SGPT 51 U/L (12-78); AST/SGOT 21 U/L (15-37); Albumin 3.5 g/dL (3.4-5.0); Alkaline Phosphatase 69 U/L (45-117); BUN Blood Urea Nitrogen 10 mg/dL (7-18); Bicarbonate 27 mmol/L (21-32); Bilirubin Direct < 0.1 mg/dL (0-0.2); Bilirubin Total 0.3 mg/dL (0.2-1.0); Glucose Level 268 mg/dL (74-106); Lipase 310 U/L (73-393); Potassium 3.9 mmol/L (3.5-5.1); Protein, Total 7.8 g/dL (6.4-8.2); Sodium Level 136 mmol/L (136-145)
[2021-01-08] MEDS ORDERED: CEFTRIAXONE 1000 MG/VIAL ONE (21:56)
[2021-01-08] MEDS ORDERED: AZITHROMYCIN 250 MG TAB ONE (21:56)
--- NOTE | 2021-01-08 22:05 | EDPHYS ---
Physician Documentation [facility] Name: Florence Anguiano Age: 25 yrs Sex: Female : 1995 Arrival Date: 01/08/2021 Time: 15:38 Bed 27 Private MD: ED Physician Fan De Los Santos HPI: 01/08 19:25 This 25 yrs old Female presents to ER via Ambulatory with complaints of cp Abdominal Pain. 19:25 The patient presents with pelvic pain, vaginal discharge, that is white discharge, cp purulent discharge. 19:25 Onset: The symptoms/episode began/occurred 2 day(s) ago. Associated signs and symptoms: cp Pertinent negatives: dysuria, fever, vaginal bleeding. The patient is sexually active. The patient's method of control includes nothing. Patient reports having unprotected sex recently and was told by partner that they tested positive for gonorrhea. 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 - Social history:: Smoking status: Patient denies any tobacco usage or history of. ROS: 19:30 Constitutional: Negative for body aches, chills, fever, poor PO intake. cp 19:30 Eyes: Negative for injury, pain, redness, and discharge. cp 19:30 Cardiovascular: Negative for chest pain. 19:30 Respiratory: Negative for cough, shortness of breath, wheezing. 19:30 Abdomen/GI: Positive for abdominal pain. 19:30 : Positive for pelvic pain, vaginal discharge, Negative for urinary symptoms, vaginal bleeding. 19:30 Neuro: Negative for dizziness, weakness. 19:30 All other systems are negative. Exam: 19:35 Constitutional: The patient appears in no acute distress, alert, awake, non-toxic, well cp developed, well nourished, obese. 19:35 Head/Face: Normocephalic, atraumatic. cp 19:35 Eyes: Periorbital structures: appear normal, Conjunctiva: normal, no exudate, no injection, Sclera: no appreciated abnormality, Lids and lashes: appear normal, bilaterally. 19:35 ENT: External ear(s): are unremarkable, Nose: is normal, Mouth: Lips: moist, Oral mucosa: moist, Posterior pharynx: Airway: no evidence of obstruction, patent. 19:35 Chest/axilla: Inspection: normal. 19:35 Cardiovascular: Rate: normal, Rhythm: regular. 19:35 Respiratory: the patient does not display signs of respiratory distress, Respirations: normal, no use of accessory muscles, no retractions, labored breathing, is not present, Breath sounds: are clear throughout, no decreased breath sounds. 19:35 Abdomen/GI: Inspection: abdomen appears normal, Bowel sounds: active, all quadrants, Palpation: soft, in all quadrants, nontender, in all quadrants. 19:35 Back: CVA tenderness, is absent. 21:30 : Pelvic Exam: External exam: is normal, Speculum exam: no bleeding is noted, no cp cervicitis, os that is closed, no tissue in cervix is seen, no tissue in vagina is seen, bimanual exam reveals cervical motion tenderness, right adnexal tenderness, left adnexal tenderness, no adnexal mass on right, no adnexal mass on left, discharge, white, yellow, the nurse was present for the exam. 21:30 Skin: cellulitis, is not appreciated. cp Vital Signs: 16:01 BP 136 / 89; Pulse 93; Resp 16; Temp 97.2; Pulse Ox 100% ; Weight 108.86 kg; Height 5 vg1 ft. 2 in. (157.48 cm); Pain 0/10; 19:30 BP 129 / 88; Pulse 82; Resp 20; Temp 98.4(O); Pulse Ox 100% on R/A; cc4 20:30 BP 121 / 75; Pulse 78; Resp 20; Pulse Ox 99% on R/A; cc4 21:30 BP 130 / 78; Pulse 76; Resp 20; Pulse Ox 99% ; cc4 22:17 BP 111 / 61; Pulse 72; Resp 20; Temp 98.4; Pulse Ox 100% on R/A; cc4 16:01 Body Mass Index 43.90 (108.86 kg, 157.48 cm) 1 MDM: 19:15 Patient medically screened. cp 22:00 Differential diagnosis: katheryn infection, ovarian cyst, pelvic inflammatory disease, cp urinary tract infection, vaginosis, STD. 22:04 Data reviewed: vital signs, nurses notes, lab test result(s), radiologic studies, cp ultrasound. 22:04 Counseling: I had a detailed discussion with the patient and/or guardian regarding: the cp historical points, exam findings, and any diagnostic results supporting the discharge/admit diagnosis, lab results, radiology results, to return to the emergency department if symptoms worsen or persist or if there are any questions or concerns that arise at home. Response to treatment: the patient's symptoms have markedly improved after treatment, and as a result, I will discharge patient. 22:05 ED course: VSS. Will treat for STD and PID with oral antibiotics and discharge to home for continued monitoring. 01/08 19:17 Order name: Urine Microscopic Only 01/08 19:17 Order name: Urine Microscopic Only; Complete Time: 22:02 EDTN 01/08 19:20 Order name: Basic Metabolic Panel; Complete Time: 22:02 01/08 22:02 Interpretation: Normal except: GLUC 268. 01/08 19:20 Order name: CBC with Diff; Complete Time: 22:02 01/08 22:02 Interpretation: Normal except: MPV 6.8. 01/08 19:20 Order name: Hepatic Function; Complete Time: 22:02 01/08 22:03 Interpretation: Normal except: GLOB 4.3; A/G 0.8. 01/08 19:20 Order name: Lipase; Complete Time: 22:02 01/08 19:17 Order name: Urine Dipstick-Ancillary (obtain specimen); Complete Time: 20:00 01/08 19:20 Order name: GC (GONORR/CHLAMYDIA) Probe 01/08 19:20 Order name: US Transvaginal Study (Probe); Complete Time: 22:02 01/08 19:20 Order name: Wet Prep; Complete Time: 22:02 01/08 19:41 Order name: Urine Dipstick-Ancillary; Complete Time: 22:02 EDMS 01/08 19:59 Order name: Urine --Ancillary (enter results); Complete Time: 22:02 tt3 01/08 19:17 Order name: Urine Test (obtain specimen); Complete Time: 20:00 cp 01/08 19:20 Order name: IV Saline Lock; Complete Time: 20:36 cp 01/08 19:20 Order name: Labs collected and sent; Complete Time: 20:36 cp 01/08 19:20 Order name: Pelvic Exam Setup; Complete Time: 20:36 cp Administered Medications: 21:38 Drug: Rocephin (cefTRIAXone) 1 grams Route: IV; Rate: calculated rate; Site: right cc4 antecubital; 22:21 Follow up: Response: No adverse reaction cc4 21:38 Drug: Zithromax (azithromycin) 1 grams Route: PO; cc4 22:17 Follow up: Urine output 350 ml; Response: No adverse reaction cc4 Disposition Summary: 01/08/21 22:04 Discharge Ordered Location: Home cp Problem: new cp Symptoms: have improved cp Condition: Stable cp Diagnosis - Vaginitis, vulvitis and vulvovaginitis in diseases classified elsewhere cp Followup: cp - With: Private Physician - When: 1 week - Reason: Recheck today's complaints Discharge Instructions: - Discharge Summary Sheet cp - Vaginitis cp - Preventing Sexually Transmitted Infections, Adult cp Forms: - Medication Reconciliation Form cp - Thank You Letter cp - Antibiotic Education cp - Prescription Opioid Use cp - Work release form cc4 Prescriptions: - Ibuprofen 800 mg Oral Tablet - take 1 tablet by ORAL route every 8 hours As needed take with food; 30 tablet; cp Refills: 0, Product Selection Permitted - Zofran 4 mg Oral Tablet - take 1 tablet by ORAL route every 12 hours As needed; 20 tablet; Refills: 0, cp Product Selection Permitted - Doxycycline Hyclate 100 mg Oral Tablet - take 1 tablet by ORAL route every 12 hours; 20 tablet; Refills: 0, Product cp Selection Permitted - Metronidazole 500 mg Oral Tablet - take 1 tablet by ORAL route every 8 hours; 30 tablet; Refills: 0, Product cp Selection Permitted Addendum: 01/11/2021 19:05 Co-signature as Attending Physician, Fan De Los Santos MD. [facility] Signatures: Dispatcher [employer] EDMS Jai Marte PA PA cp Garcia, Victoria, RN RN vg1 Fan De Los Santos MD MD mh7 Pia Ferris RN RN cc4
--- NOTE | 2021-01-08 22:05 | ER ---
Nurse's Notes [facility] Name: Florence Anguiano Age: 25 yrs Sex: Female : 1995 Arrival Date: 01/08/2021 Time: 15:38 Bed 27 Private MD: Diagnosis: Vaginitis, vulvitis and vulvovaginitis in diseases classified elsewhere Presentation: 01/08 16:01 Chief complaint: Patient states: Pelvic pain began two days ago, with thick whit vg1 discharge. Stated found out today that partner has gonorrhea. Denies NV; denies burning upon urination. Coronavirus screen: Vaccine status: Patient reports receiving the 2nd dose of the covid vaccine. Client denies travel out of the [place] in the last 14 days. Ebola Screen: Patient negative for fever greater than or equal to 101.5 degrees Fahrenheit, and additional compatible Ebola Virus Disease symptoms. Initial Sepsis Screen: Does the patient meet any 2 criteria? No. Patient's initial sepsis screen is negative. Does the patient have a suspected source of infection? No. Patient's initial sepsis screen is negative. Risk Assessment: Do you want to hurt yourself or someone else? Patient reports no desire to harm self or others. Onset of symptoms was January 06, 2021. 16:01 Method Of Arrival: Ambulatory vg1 16:01 Acuity: HELENA 3 vg1 Triage Assessment: 16:05 General: Appears in no apparent distress. comfortable, Behavior is calm, cooperative. vg1 Pain: Complains of pain in pelvis. GI: Abdomen is round obese. 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 - Social history:: Smoking status: Patient denies any tobacco usage or history of. Screenin:30 Abuse screen: Denies threats or abuse. Nutritional screening: No deficits noted. cc4 Tuberculosis screening: No symptoms or risk factors identified. Fall Risk None identified. Assessment: 19:30 General: Appears in no apparent distress. Behavior is calm, cooperative. Pain: cc4 Complains of pain in pelvis Pain currently is 0 out of 10 on a pain scale. Quality of pain is described as sharp, Pain began 2 days ago with whitish vaginal discharge reported; reports intermittent sharp pain of pelvic area x 2 days; denies pelvic pain APT. Neuro: Level of Consciousness is awake, alert, obeys commands, Oriented to person, place, time, situation. Cardiovascular: No deficits noted. Heart tones S1 S2. Respiratory: No deficits noted. Airway is patent Breath sounds are clear bilaterally. GI: No deficits noted. No signs and/or symptoms were reported involving the gastrointestinal system. Bowel sounds present X 4 quads. Abd is soft and non tender X 4 quads. Abdomen is tender to palpation Tender of pelvic area. : No deficits noted. No signs and/or symptoms were reported regarding the genitourinary system. EENT: No deficits noted. No signs and/or symptoms were reported regarding the EENT system. Derm: No deficits noted. No signs and/or symptoms reported regarding the dermatologic system. Skin is intact. Musculoskeletal: No deficits noted. No signs and/or symptoms reported regarding the musculoskeletal system. Capillary refill < 3 seconds. 19:30 General: # 20 g saline lock inserted right AC X1 attempt with no difficulty, josh. cc4 well.; blood drawn \T\ sent to lab.. 22:17 Reassessment: Patient appears in no apparent distress at this time. Saline lock removed cc4 right AC with bleeding controlled \T\ pressure dsg applied to site, josh. well; discharge instructions given with RX's x4 \T\ V/U. Vital Signs: 16:01 BP 136 / 89; Pulse 93; Resp 16; Temp 97.2; Pulse Ox 100% ; Weight 108.86 kg; Height 5 vg1 ft. 2 in. (157.48 cm); Pain 0/10; 19:30 BP 129 / 88; Pulse 82; Resp 20; Temp 98.4(O); Pulse Ox 100% on R/A; cc4 20:30 BP 121 / 75; Pulse 78; Resp 20; Pulse Ox 99% on R/A; cc4 21:30 BP 130 / 78; Pulse 76; Resp 20; Pulse Ox 99% ; cc4 22:17 BP 111 / 61; Pulse 72; Resp 20; Temp 98.4; Pulse Ox 100% on R/A; cc4 16:01 Body Mass Index 43.90 (108.86 kg, 157.48 cm) 1 ED Course: 15:38 Patient arrived in ED. as 16:05 Triage completed. vg1 16:05 Arm band placed on. vg1 19:04 Jai Marte PA is PHCP. cp 19:04 Fan De Los Santos MD is Attending Physician. cp 19:30 Patient has correct armband on for positive identification. Bed in low position. Call cc4 light in reach. Side rails up X 1. 19:55 Pia Ferris, CHELSY is Primary Nurse. cc4 19:56 US Transvaginal Study (Probe) Sent. cc4 20:00 Urine Microscopic Only Sent. cc4 20:00 Urine Microscopic Only Sent. cc4 20:10 Assist provider with pelvic exam:. cc4 20:10 Wet prep swab sent to lab. GC culture done per C. JAMES Marte \T\ sent to lab. cc4 20:12 US Transvaginal Study (Probe) In Process Unspecified. EDMS 21:02 Wet Prep Sent. cc4 21:02 GC (GONORR/CHLAMYDIA) Probe Sent. cc4 22:17 IV discontinued, intact, bleeding controlled, No redness/swelling at site. Pressure cc4 dressing applied. Administered Medications: 21:38 Drug: Rocephin (cefTRIAXone) 1 grams Route: IV; Rate: calculated rate; Site: right cc4 antecubital; 22:21 Follow up: Response: No adverse reaction cc4 21:38 Drug: Zithromax (azithromycin) 1 grams Route: PO; cc4 22:17 Follow up: Urine output 350 ml; Response: No adverse reaction cc4 Output: 22:17 Urine: 350ml; Total: 350ml. cc4 Outcome: 22:04 Discharge ordered by MD. cp 22:17 Condition: stable cc4 22:17 Discharged to home ambulatory. cc4 22:17 Discharge instructions given to patient, Instructed on discharge instructions, follow up and referral plans. medication usage, Demonstrated understanding of instructions, follow-up care, medications, Prescriptions given X 4. 22:20 Patient left the ED. cc4 Signatures: Dispatcher [employer] EDND Aury Souza as Jai Marte PA PA cp Garcia, Victoria, RN RN vg1 Pia Ferris, RN RN cc4
[2021-01-08 22:27] VITALS: TEMP 98.4
[2021-01-08 22:31] VITALS: BP 111/61; O2SAT 100
[2021-01-12 16:42] LABS: C.trachomatis RNA,TMA Not Detected (Not Detected)
== END 2021-01-08 22:20 | disposition home or self-care (01) ==
LOC: ER 15:35
DX: R10.2 Pelvic and perineal pain (principal); N77.1 Vaginitis, vulvitis and vulvovaginitis in diseases classified elsewhere; E11.9 Type 2 diabetes mellitus without complications
CPT/HCPCS: 36415; 76830; 80048; 80076; 81003; 81015; 81025; 83690; 85025; 87210; 87490; 87590; 96374; 99284

== ENCOUNTER 2021-03-24 15:16 | Emergency (ER) | payer OTHER ==
--- OUTSIDE RECORDS SUMMARY | 2021-03-24 15:19 | XMS REPORT | Continuity of Care Document ---
:1995 [address] [facility] t Address [address] [place] [address] Care Team Providers Name Role Phone Unavailable Unavailable Unavailable Problems This patient has no known problems. Allergies, Adverse Reactions, Alerts This patient has no known allergies or adverse reactions. Medications This patient has no known medications. Procedures This patient has no known procedures. Encounters Start End Encounter Admission Attending Care Care Encounter Source Date/Time Date/Time Type Type Clinicians Facility Department ID 2021-02-22 2021-02-22 ambulatory [facility] [id number] [facility] 00:00:00 00:00:00 [facility] 2018-09-22 2018-09-22 Emergency E [facility] 7507 [facility] 23:58:00 23:58:00 Results This patient has no known results.
[2021-03-24 16:57] LABS: Urine Blood Trace-lysed (Negative); Urine Glucose 3+ (Negative); Urine Protein Trace (Negative); Urine Specific Gravity >=1.030 (1.005-1.030); Urine pH 5.5 (5.0-7.0)
--- NOTE | 2021-03-24 17:13 | EDPHYS ---
Physician Documentation [facility] Name: Florence Anguiano Age: 25 yrs Sex: Female : 1995 Arrival Date: 03/24/2021 Time: 15:17 Bed 11 Private MD: ED Physician Ross Kearns HPI: 03/24 16:18 This 25 yrs old Female presents to ER via Ambulatory with complaints of jmm Vaginal Pain. 16:18 The patient presents with urinary symptoms, vaginal discharge. Onset: The jmm symptoms/episode began/occurred gradually, 2 day(s) ago. Modifying factors: The symptoms are alleviated by nothing, the symptoms are aggravated by nothing. Associated signs and symptoms: Pertinent positives: dysuria. Is a 25-year-old female with history of diabetes mellitus the presents emerged department with complaints of vaginal pain beginning approximately 2 days ago. Patient states having some mild discharge. Patient attempted to use Monistat to help relieve symptoms. Patient states she then resorted to using athlete's foot powder. Symptoms worsened after that, patient describes sensation as if there are razor blades on her vagina.. Historical: - Allergies: 16:09 Tylenol; iw - PMHx: 16:09 Diabetes - NIDDM; iw ROS: 16:18 Constitutional: Negative for fever, chills, and weight loss, Cardiovascular: Negative jmm for chest pain, palpitations, and edema, Respiratory: Negative for shortness of breath, cough, wheezing, and pleuritic chest pain. 16:18 Back: Negative for injury and pain, Skin: Negative for injury, rash, and discoloration, Neuro: Negative for headache, weakness, numbness, tingling, and seizure, Psych: Negative for depression, anxiety, suicide ideation, homicidal ideation, and hallucinations. 16:18 : Positive for vaginal discharge. 16:18 All other systems are negative. Exam: 16:18 Constitutional: This is a well developed, well nourished patient who is awake, alert, jmm and in no acute distress. Head/Face: atraumatic. Eyes: EOMI, no conjunctival erythema appreciated ENT: Moist Mucus Membranes Neck: Trachea midline, Supple Chest/axilla: Normal chest wall appearance and motion. Cardiovascular: Regular rate and rhythm. No edema appreciated Respiratory: Normal respirations, no respiratory distress appreciated Abdomen/GI: Non distended, soft Back: Normal ROM Skin: General appearance color normal MS/ Extremity: Moves all extremities, no obvious deformities appreciated, no edema noted to the lower extremities Neuro: Awake and alert, normal gait Psych: Behavior is normal, Mood is normal, Patient is cooperative and pleasant 16:48 : Pelvic Exam: External exam: herpes lesions noted. [facility] Vital Signs: 17:00 BP 134 / 74; Pulse 89; Resp 16; Temp 98.0; Pulse Ox 100% on R/A; iw MDM: 16:07 Patient medically screened. [facility] 17:09 Data reviewed: vital signs, nurses notes. Counseling: I had a detailed discussion with [facility] the patient and/or guardian regarding: the historical points, exam findings, and any diagnostic results supporting the discharge/admit diagnosis, lab results, radiology results, the need for outpatient follow up, to return to the emergency department if symptoms worsen or persist or if there are any questions or concerns that arise at home. ED course: Exam findings concerning for HSV infection. Will treat with Valtrex. Patient also advised to follow with [facility] for further evaluation. Patient understood and agrees to plan of care.. 03/24 16:57 Order name: Urine Dipstick-Ancillary; Complete Time: 17:08 [facility] 03/24 16:58 Order name: Urine --Ancillary (enter results); Complete Time: 17:08 03/24 16:12 Order name: Urine Dipstick-Ancillary (obtain specimen); Complete Time: 17:01 [facility] 03/24 16:12 Order name: Urine Test (obtain specimen); Complete Time: 17:00 [facility] 03/24 17:27 Order name: HSV Culture and Typing [facility] Administered Medications: 17:31 Drug: DiFLUcan (fluconazole) 150 mg Route: PO; iw 18:00 Follow up: Response: No adverse reaction iw Disposition: 18:53 Co-signature as Attending Physician, Ross Kearns MD. kdr Disposition Summary: 03/24/21 17:12 Discharge Ordered Location: Home [facility] Condition: Stable [facility] Diagnosis - Acute Vaginitis [facility] Followup: [facility] - With: Private Physician - When: 2 - 3 days - Reason: Recheck today's complaints, Continuance of care, Re-evaluation by your physician Discharge Instructions: - Discharge Summary Sheet [facility] - Genital Herpes jmm - Vaginitis [facility] Forms: - Medication Reconciliation Form jmm - Thank You Letter jmm - Antibiotic Education jmm - Prescription Opioid Use jmm - Work release form iw Prescriptions: - Valtrex 1 gram Oral tablet - take 1 tablet by ORAL route 3 times per day for 7 days; 21 tablet; Refills: 0, [facility] Product Selection Permitted - Flagyl 500 mg Oral Tablet - take 1 tablet by ORAL route every 12 hours for 7 days; 14 tablet; Refills: 0, [facility] Product Selection Permitted Signatures: Dispatcher [employer] Ross Hernandez MD MD kdr Mickail, Joel, PA PA jmm Williams, Irene, RN RN iw
--- NOTE | 2021-03-24 17:13 | ER ---
Nurse's Notes [facility] Name: Florence Anguiano Age: 25 yrs Sex: Female : 1995 Arrival Date: 03/24/2021 Time: 15:17 Bed 11 Private MD: Diagnosis: Acute Vaginitis Presentation: 03/24 16:03 Chief complaint: Chief complaint: Patient states: vaginal irritation that started two iw days ago, mild discharge , Monistat not helping. 16:10 Coronavirus screen: At this time, the client does not indicate any symptoms associated iw with coronavirus-19. Ebola Screen: Patient negative for fever greater than or equal to 101.5 degrees Fahrenheit, and additional compatible Ebola Virus Disease symptoms Patient denies exposure to infectious person. Patient denies travel to an Ebola-affected area in the 21 days before illness onset. No symptoms or risks identified at this time. Initial Sepsis Screen: Does the patient meet any 2 criteria? No. Patient's initial sepsis screen is negative. Does the patient have a suspected source of infection? No. Patient's initial sepsis screen is negative. Risk Assessment: Do you want to hurt yourself or someone else? Patient reports no desire to harm self or others. Onset of symptoms. 16:10 Method Of Arrival: Ambulatory iw 16:10 Acuity: HELENA 4 iw Triage Assessment: 17:00 General: Appears. iw Historical: - Allergies: 16:09 Tylenol; iw - PMHx: 16:09 Diabetes - NIDDM; iw Screenin:29 Abuse screen: Denies threats or abuse. Denies injuries from another. Nutritional iw screening: No deficits noted. Tuberculosis screening: No symptoms or risk factors identified. Fall Risk None identified. Assessment: 17:00 General: Appears in no apparent distress. comfortable, Behavior is calm, cooperative. iw Pain: Complains of pain in pelvis. Neuro: Level of Consciousness is awake, alert, obeys commands, Oriented to person, place, time, situation, Moves all extremities. Full function. Vital Signs: 17:00 BP 134 / 74; Pulse 89; Resp 16; Temp 98.0; Pulse Ox 100% on R/A; iw ED Course: 15:17 Patient arrived in ED. ds1 15:50 Gutierrez Lou PA is PHCP. jmm 15:51 Ross Kearns MD is Attending Physician. shorty 16:09 Maye Monzon, RN is Primary Nurse. iw 16:13 Triage completed. iw 17:00 Assist provider with pelvic exam:. iw 17:25 Arm band placed on. iw Administered Medications: 17:31 Drug: DiFLUcan (fluconazole) 150 mg Route: PO; iw 18:00 Follow up: Response: No adverse reaction iw Outcome: 17:12 Discharge ordered by . shorty 17:30 Discharged to home ambulatory. iw 17:30 Condition: good 17:30 Discharge instructions given to patient, Instructed on discharge instructions, follow up and referral plans. medication usage, Demonstrated understanding of instructions, follow-up care, medications, Prescriptions given X 2. 17:31 Patient left the ED. iw Signatures: Gutierrez Lou PA PA Lakesha Whitman ds1 Maye Monzon, RN RN iw Corrections: (The following items were deleted from the chart) 16:13 16:03 Chief complaint: iw iw
[2021-03-24] MEDS ORDERED: FLUCONAZOLE 100 MG TAB ONE (17:29)
[2021-03-28 12:30] LABS: HSV Source Not Given
== END 2021-03-24 17:31 | disposition home or self-care (01) ==
LOC: ER 15:16
DX: N76.0 Acute vaginitis (principal); Z88.6 Allergy status to analgesic agent
CPT/HCPCS: 81003; 81025; 87255; 99283

== ENCOUNTER 2021-04-25 18:21 | Emergency (ER) | payer OTHER ==
--- OUTSIDE RECORDS SUMMARY | 2021-04-25 18:24 | XMS REPORT | Continuity of Care Document ---
:1995 Author Organization [facility] t Address [address] [place] [address] Care Team Providers Name Role Phone Sukhdeep Attending Clinician Unavailable Problems This patient has no known problems. Allergies, Adverse Reactions, Alerts This patient has no known allergies or adverse reactions. Medications This patient has no known medications. Procedures This patient has no known procedures. Encounters Start End Encounter Admission Attending Care Care Encounter Source Date/Time Date/Time Type Type Clinicians Facility Department ID 2021-04-17 Outpatient Sukhdeep [facility] [id number] [facility] [address] 14:29:20 [place] [id number] [facility] 2021-04-17 Outpatient Sukhdeep [facility] [id number] [facility] 14:20:52 [place] [id number] [facility] 2021-04-17 Outpatient [facility] [id number] [facility] [address] 14:20:17 [id number] [facility] 2021-02-22 2021-02-22 ambulatory [facility] [id number] [facility] 00[facility]00 [facility]00 [facility] 2018-09-22 2018-09-22 Emergency E [facility] 23:58:00 23:58:00 Results This patient has no known results.
[2021-04-25] MEDS ORDERED: dexAMETHasone 10 MG/ML VIAL ONE (18:45)
--- NOTE | 2021-04-25 18:46 | EDPHYS ---
Physician Documentation [facility] Name: Florence Anguiano Age: 25 yrs Sex: Female : 1995 Arrival Date: 04/25/2021 Time: 18:24 Bed 11 Private MD: ED Physician Ross Kearns HPI: 04/25 18:43 This 25 yrs old Female presents to ER via Ambulatory with complaints of jmm Allergic Reaction. 18:43 The patient presents with rash. Onset: The symptoms/episode began/occurred acutely, jmm just prior to arrival. Associated signs and symptoms: Pertinent positives: rash. This is a 25-year-old female with history of diabetes mellitus the presents emerge department with complaints of itching to her throat and rash beginning after accidentally taking Tylenol. Patient took some Benadryl which helped alleviate symptoms. Denies shortness of breath, swelling sensation to her throat, vomiting or diarrhea.. Historical: - Allergies: 18:30 Tylenol; vg1 - Home Meds: 18:30 Metformin Oral [Active]; vg1 - PMHx: 18:30 Diabetes - NIDDM; vg1 - Immunization history:: Client reports receiving the 2nd dose of the Covid vaccine. - Social history:: Smoking status: Patient denies any tobacco usage or history of. ROS: 18:43 Constitutional: Negative for fever, chills, and weight loss, Cardiovascular: Negative jmm for chest pain, palpitations, and edema, Respiratory: Negative for shortness of breath, cough, wheezing, and pleuritic chest pain. 18:43 Skin: Positive for rash. 18:43 Allergy/Immunology: Positive for rash. 18:43 All other systems are negative. Exam: 18:43 Constitutional: This is a well developed, well nourished patient who is awake, alert, jmm and in no acute distress. Head/Face: atraumatic. Eyes: EOMI, no conjunctival erythema appreciated ENT: Moist Mucus Membranes Neck: Trachea midline, Supple Chest/axilla: Normal chest wall appearance and motion. Cardiovascular: Regular rate and rhythm. No edema appreciated Respiratory: Normal respirations, no respiratory distress appreciated Abdomen/GI: Non distended, soft Back: Normal ROM Skin: General appearance color normal MS/ Extremity: Moves all extremities, no obvious deformities appreciated, no edema noted to the lower extremities Neuro: Awake and alert Psych: Behavior is normal, Mood is normal, Patient is cooperative and pleasant Vital Signs: 18:27 BP 145 / 95; Pulse 93; Resp 18; Temp 97.3; Pulse Ox 100% ; Weight 117.03 kg; Height 5 vg1 ft. 2 in. (157.48 cm); Pain 0/10; 18:55 BP 141 / 87; Pulse 86; Resp 16; Pulse Ox 99% on R/A; ab2 18:27 Body Mass Index 47.19 (117.03 kg, 157.48 cm) vg1 MDM: 18:40 Patient medically screened. [facility] 18:44 Data reviewed: vital signs, nurses notes. Counseling: I had a detailed discussion with [facility] the patient and/or guardian regarding: the historical points, exam findings, and any diagnostic results supporting the discharge/admit diagnosis, the need for outpatient follow up, to return to the emergency department if symptoms worsen or persist or if there are any questions or concerns that arise at home. ED course: Patient is alert and non toxic in appearance in the ED. No signs of resp distress. patient advised to follow up with pcp and otherwise given strict return precautions. patient understood and agrees with the plan of care. . Administered Medications: 18:45 Drug: Decadron (dexamethasone) 10 mg Route: IM; Site: left deltoid; ab2 Disposition: 04/26 07:27 Co-signature as Attending Physician, Ross Kearns MD I agree with the assessment and kdr plan of care. Disposition Summary: 04/25/21 18:45 Discharge Ordered Location: Home [facility] Condition: Stable m Diagnosis - Rash and other nonspecific skin eruption [facility] Followup: [facility] - With: Private Physician - When: 2 - 3 days - Reason: Recheck today's complaints, Continuance of care, Re-evaluation by your physician Discharge Instructions: - Discharge Summary Sheet [facility] - Rash, Adult jmm Forms: - Medication Reconciliation Form [facility] - Thank You Letter [facility] - Antibiotic Education [facility] - Prescription Opioid Use [facility] - Work release form ab2 Prescriptions: - Hydroxyzine HCl 25 mg Oral Tablet - take 1 tablet by ORAL route every 6 hours As needed; 30 tablet; Refills: 0, [facility] Product Selection Permitted - Prednisone 20 mg Oral Tablet - take 3 tablets by ORAL route once daily for 5 days; 15 tablet; Refills: 0, [facility] Product Selection Permitted Signatures: Ross Kearns MD MD kdr Gutierrez Lou PA PA jmm Garcia, Victoria RN RN vg1 Chris Goins
--- NOTE | 2021-04-25 18:46 | ER ---
Nurse's Notes [facility] Name: Florence Anguiano Age: 25 yrs Sex: Female : 1995 Arrival Date: 04/25/2021 Time: 18:24 Bed 11 Private MD: Diagnosis: Rash and other nonspecific skin eruption Presentation: 04/25 18:27 Chief complaint: Patient states: pt was at work and had a headache and asked a coworker vg1 for a motrin. States found out that it was Tylenol and states is allergic to Tylenol. Noticed itchiness to throat and noticed rash on chest; states took two tablets of Benadryl and is 'feeling a little better'. Coronavirus screen: Vaccine status: Patient reports receiving the 2nd dose of the covid vaccine. Client denies travel out of the [place] in the last 14 days. Ebola Screen: Patient negative for fever greater than or equal to 101.5 degrees Fahrenheit, and additional compatible Ebola Virus Disease symptoms. Onset: The symptoms/episode began/occurred 2 hour(s) ago. Anaphylaxis evaluation, 'itchy throat'. Initial Sepsis Screen: Does the patient meet any 2 criteria? No. Patient's initial sepsis screen is negative. Does the patient have a suspected source of infection? No. Patient's initial sepsis screen is negative. Risk Assessment: Do you want to hurt yourself or someone else? Patient reports no desire to harm self or others. Onset of symptoms was April 25, 2021. 18:27 Method Of Arrival: Ambulatory vg1 18:27 Acuity: HELENA 3 vg1 Triage Assessment: 18:31 General: Appears comfortable, Behavior is calm, cooperative. Pain: Denies pain. vg1 Respiratory: Airway is patent Trachea midline Respiratory effort is even, unlabored. Historical: - Allergies: 18:30 Tylenol; vg1 - Home Meds: 18:30 Metformin Oral [Active]; vg1 - PMHx: 18:30 Diabetes - NIDDM; vg1 - Immunization history:: Client reports receiving the 2nd dose of the Covid vaccine. - Social history:: Smoking status: Patient denies any tobacco usage or history of. Screenin:36 Abuse screen: Denies threats or abuse. Denies injuries from another. Nutritional ab2 screening: No deficits noted. Tuberculosis screening: No symptoms or risk factors identified. Fall Risk None identified. Assessment: 18:35 General: Appears in no apparent distress. comfortable, Behavior is calm, cooperative, ab2 appropriate for age. Pain: Denies pain. 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 Gait is steady, Speech is normal, Facial symmetry appears normal. Cardiovascular: Denies chest pain, shortness of breath, Heart tones S1 S2 present Patient's skin is warm and dry. Respiratory: No deficits noted. Airway is patent Breath sounds are clear bilaterally. Denies shortness of breath pain with respiration. GI: No deficits noted. No signs and/or symptoms were reported involving the gastrointestinal system. : No deficits noted. No signs and/or symptoms were reported regarding the genitourinary system. EENT: No deficits noted. No signs and/or symptoms were reported regarding the EENT system. Derm: No deficits noted. No signs and/or symptoms reported regarding the dermatologic system. Musculoskeletal: No deficits noted. Vital Signs: 18:27 BP 145 / 95; Pulse 93; Resp 18; Temp 97.3; Pulse Ox 100% ; Weight 117.03 kg; Height 5 vg1 ft. 2 in. (157.48 cm); Pain 0/10; 18:55 BP 141 / 87; Pulse 86; Resp 16; Pulse Ox 99% on R/A; ab2 18:27 Body Mass Index 47.19 (117.03 kg, 157.48 cm) vg1 ED Course: 18:24 Patient arrived in ED. es 18:30 Triage completed. vg1 18:31 Arm band placed on. vg1 18:32 Gutierrez Lou PA is PHCP. [facility] 18:32 Ross Kearns MD is Attending Physician. jmm 18:35 Chris Goins is Primary Nurse. ab2 18:36 Patient has correct armband on for positive identification. Bed in low position. Call ab2 light in reach. Side rails up X2. 18:36 No provider procedures requiring assistance completed. ab2 18:56 Patient did not have IV access during this emergency room visit. ab2 Administered Medications: 18:45 Drug: Decadron (dexamethasone) 10 mg Route: IM; Site: left deltoid; ab2 Outcome: 18:45 Discharge ordered by MD. oro 18:56 Discharged to home ambulatory. ab2 18:56 Condition: good 18:56 Discharge instructions given to patient, Instructed on discharge instructions, follow up and referral plans. medication usage, Demonstrated understanding of instructions, follow-up care, medications, Prescriptions given X 2. 18:56 Patient left the ED. ab2 Signatures: Gutierrez Lou PA PA jmm Salyer, Edna es Garcia, Victoria RN RN vg1 Chris Goins ab2
[2021-04-25 19:13] VITALS: TEMP 97.3
[2021-04-25 19:15] VITALS: BP 141/87; O2SAT 99
== END 2021-04-25 18:56 | disposition home or self-care (01) ==
LOC: ER 18:21
DX: R21 Rash and other nonspecific skin eruption (principal); E11.9 Type 2 diabetes mellitus without complications; Z88.6 Allergy status to analgesic agent
CPT/HCPCS: 96372; 99283; J1100

== ENCOUNTER 2024-05-24 11:57 | Emergency (ER) | payer OTHER ==
--- OUTSIDE RECORDS SUMMARY | 2024-05-24 12:01 | XMS REPORT | Continuity of Care Document ---
Author Name Unknown Address [address] [facility] [address] [place] [address] [facility] thconnect Address [address] [facility] [address] [place] [address] Care Team Providers Care Border Patrol Agent Name Role Phone PCP, PATIENT DOES NOT HAVE A Primary Care Physic sophie Unavailable Zunilda Tarango Attending Clinician Unavailable GEETA BERRY Attending Clinician Unavailable GEETA BERRY Attending Clinician Unavailable Geeta Berry MD Attending Clinician Nurse, [facility] Attending Clinician Un available 2, [facility] Attending Clinician UnavailFreddy Calderón MD Attending Clinician FREDDY PANCHAL Attending Clinician Unavailable FREDDY PANCHAL Attending Clinician Unavailable FREDDY PANCHAL Attending Clinician Unavailable 2, [facility] Attending Clinician Unavailable [email or web address]_S Attending Clinician Unavaila ble [email or web address]_S Admitting Clinician Unavaila lola Payers Payer Name Policy Type Policy Number Effective Date Expirati on Date Source [employer] IN NETWORK [id number] 2023 00:00:00 [employer] - OPEN ACCESS [id number] 90 [employer]GREE BENEFITS [id number] Problems Condition Name Condition Details Condition Category Status Onset Date Resolution Date Last Treatment Date Treating Clinician Comments Source Genital herpes simplex Genital herpes simplex Disease Active 07-26 00:00: 00 [facility] Acute vaginitis Acute Vaginitis Problem Active 07-26 00:00: 00 [facility] Pain in pelvis Pain in Pelvis Problem Active 2022-03 2 00:00: 00 [facility] Polycystic ovary syndrome Polycystic Ovary Syndrome Problem Active 2022-03 00:00: 00 [facility] Hyperglyce yaritza due to type 2 diabetes mellitus Hyperglyce yaritza Due to Type 2 Diabetes Mellitus Problem Active 2022-03 2 00:00: 00 [facility] Hyperglyce yaritza due to type 2 diabetes mellitus Hyperglyce yaritza due to type 2 diabetes mellitus Disease Active 2022-03 00:00: 00 [facility] Polycystic ovary syndrome Polycystic ovary syndrome Disease Active 2022-03 00:00: 00 [facility] Low grade squamous intraepith elial lesion (LGSIL) on Papanicola ou smear of cervix Low grade squamous intraepith elial lesion (LGSIL) on Papanicola ou smear of cervix Disease Active 8-16 00:00: 00 [facility] Bacterial vaginosis Bacterial Vaginosis Problem Active 816 00:00: 00 [facility] Candidiasi s of vagina Candidiasi s of Vagina Problem Active 8-16 00:00: 00 [facility] Type 2 diabetes mellitus Type 2 Diabetes Mellitus Problem Active 8-16 00:00: 00 [facility] Secondary diabetes mellitus Secondary Diabetes Mellitus Problem Active 11-14 00:00: 00 [facility] Gonorrhea of lower genitourin luana tract Gonorrhea of Lower Genitourin luana Tract Problem Active 1- 00:00: 00 [facility] Herpetic vulvovagin itis Herpetic Vulvovagin itis Problem Active - 00:00: 00 [facility] Severe obesity Severe Obesity Problem Active - 00:00: 00 [facility] Irregular periods Irregular Periods Problem Active - 00:00: 00 [facility] Body mass index 40+ - severely obese Body Mass Index 40+ - Severely Obese Problem Active 1-13 00:00: 00 [facility] Uncontroll ed type 2 diabetes mellitus without complicati on, without long-term current use of insulin Uncontroll ed type 2 diabetes mellitus without complicati on, without long-term current use of insulin Disease Active 07-16 00:00: 00 [facility] Morbid obesity Morbid obesity Disease Active 07-14 00:00: 00 [facility] Incomplete spontaneou s with no complicati on Incomplete spontaneou s with no complicati on Disease Resolve d 07-14 00:00: 00 2024-05-13 00:00:00 2024-05-13 17:05:47 [facility] Excessive vaginal bleeding Excessive vaginal bleeding Disease Resolve d 07-14 00:00: 00 2024-05-13 00:00:00 2024-05-13 17:05:55 [facility] Allergies, Adverse Reactions, Alerts Allergy Name Allergy Type Status Severity Reaction(s) Onset Date Inactive Date Treating Clinician Comments Source NSAIDS (NON-ALEJANDRO ROIDAL ANTI-INF LAMMATOR Y DRUG) Drug Class Active Hives 05-17 00:00: 00 [facility] Nsaids (Non-Alejandro roidal Anti-Inf lammator y Drug) Propensi ty to adverse reaction s Active Swelling 05-17 00:00: 00 [facility] Acetamin ophen Propensi ty to adverse reaction s Active Swelling 07-14 00:00: 00 [facility] Naproxen Sodium Propensi ty to adverse reaction s Active Swelling 07-14 00:00: 00 [facility] ACETAMIN OPHEN DRUG INGREDI Active Hives 07-14 00:00: 00 [facility] NAPROXEN SODIUM DRUG INGREDI Active Hives 07-14 00:00: 00 [facility] Tylenol Allergy to substanc e Active Hives [facility] Social History Social Habit Start Date Stop Date Quantity Comments Source ASSERTION 2024-02-05 00:00:00 [facility] Tobacco use and exposure 2024-05-23 00:00:00 2024-05-23 00:00:00 Smokeless tobacco non-user [facility] Alcoholic beverage intake 2024-05-23 00:00:00 2024-05-23 00:00:00 Ex-drinker (finding) [facility] History of Social function 2024-05-13 00:00:00 2024-05-13 00:00:00 [facility] Sex assigned at 1995 00:00:00 1995 00:00:00 [facility] Smoking Status Start Date Stop Date Source Never smoked tobacco [facility] Medications Ordered Medication Name Filled Medication Name Start Date Stop Date Current Medication? Ordering Clinician Indication Dosage Frequency Signature (SIG) Comments Components Source PNV 67-iron ps-folate no.1-dha (VITAFOL ULTRA) 29 mg iron- 1 mg-200 mg Cap 05-18 00:00: 00 Yes 1{tbl} Take 1 tablet by mouth in the morning. If insurance does not cover can substituen t with any other mediation that contains components . [facility] Blood-Gluco se Meter (BLOOD GLUCOSE MONITORING) Kit 05-17 00:00: 00 Yes [id number] Use as directed [facility] Alcohol Swabs PadM 05-17 00:00: 00 Yes [id number] Apply to area(s) 4 (four) times daily. [facility] lancets 33 gauge Misc 05-17 00:00: 00 Yes [id number] Check blood glucose 4 times a day [facility] blood sugar diagnostic (BLOOD GLUCOSE TEST) strip 05-17 00:00: 00 Yes [id number] Check blood glucose 4 times a day [facility] Blood-Gluco se Sensor (DEXCOM G7 SENSOR) Zainab 05-17 00:00: 00 Yes Use as directed [facility] vit/iron fum/folic ac ( 1 + 1 ORAL) 05-13 14:41: 34 Yes Take by mouth. [facility] fluconazole 200 mg tablet 16 00:00: 00 Yes 200mg Take 1 tablet by mouth every morning. [facility] cephALEXin 500 mg capsule 2-16 00:00: 00 Yes 500mg Take 1 capsule by mouth 4 (four) times daily. [facility] valACYclovi r 500 mg tablet -06 00:00: 00 05-13 00:00 :00 No Take 1 tablet twice a day by oral route as directed for 5 days. [facility] traMADOL 50 mg tablet 06-15 00:00: 00 05-13 00:00 :00 No [id number] 50mg Take 1 tablet by mouth every 8 (eight) hours as needed for Pain (scale 4-6). [facility] metFORMIN 500 mg tablet 07-15 00:00: 00 Yes 500mg Take 1 tablet by mouth 2 (two) times daily with meals. [facility] ibuprofen 800MG ibuprofen 800MG No ibuprofen 800MG [facility] metformin 1,000 mg tablet TAKE 1 TABLET BY MOUTH TWICE DAILY DIRECTED metformin 1,000 mg tablet TAKE 1 TABLET BY MOUTH TWICE DAILY DIRECTED No 1 BID metformin 1,000 mg tablet TAKE 1 TABLET BY MOUTH TWICE DAILY DIRECTED [facility] SAUL (28) 3 mg-0.02 mg tablet Take 1 tablet every day by oral route for 84 days. SAUL (28) 3 mg-0.02 mg tablet Take 1 tablet every day by oral route for 84 days. No 1 Q1D SAUL (28) 3 mg-0.02 mg tablet Take 1 tablet every day by oral route for 84 days. [facility] metronidazo le 500 mg tablet Take 1 tablet every 12 hours by oral route for 7 days. metronidazo le 500 mg tablet Take 1 tablet every 12 hours by oral route for 7 days. No 1 Q12H metronidaz ole 500 mg tablet Take 1 tablet every 12 hours by oral route for 7 days. [facility] Vital Signs Vital Name Observation Time Observation Value Comments S syed Systolic blood pressure 2024-05-23 15:25:00 119 mm[Hg] [facility] Diastolic blood pressure 2024-05-23 15:25:00 79 mm[Hg] [facility] Heart rate 2024-05-23 15:20:00 92 /min [facility] Respiratory rate 2024-05-23 15:20:00 18 /min [facility] Body weight 2024-05-23 15:20:00 111.948 kg [facility] BMI 2024-05-23 15:20:00 45.14 kg/m2 [facility] Systolic blood pressure 2024-05-13 20:48:00 124 mm[Hg] [facility] Diastolic blood pressure 2024-05-13 20:48:00 79 mm[Hg] [facility] Heart rate 2024-05-13 20:48:00 90 /min [facility] Body temperature 2024-05-13 20:48:00 37.06 Indy [facility] Respiratory rate 2024-05-13 20:48:00 18 /min [facility] Body height 2024-05-13 20:48:00 157.5 cm [facility] Body weight 2024-05-13 20:48:00 115.214 kg [facility] BMI 2024-05-13 20:48:00 46.46 kg/m2 [facility] Body Weight 2023-07-27 00:00:00 261.8 [lb_av] [facility] BP Diastolic 2023-07-27 00:00:00 87 mm[Hg] [facility] BMI (Body Mass Index) 2023-07-27 00:00:00 47.9 kg/m2 [facility] BP Systolic 2023-07-27 00:00:00 135 mm[Hg] [facility] Height 2023-07-27 00:00:00 62 [in_i] [facility] Height 2023-05-08 00:00:00 62 [in_i] [facility] Procedures Procedure Date / Time Performed Performing Clinician Source SECOND AND THIRD TRIMESTER ULTRASOUND 2024-05-16 15:45:00 AdumGeeta [facility] <14 WEEKS US LIMITED 2024-05-13 23:13:19 AdumGeeta [facility] SGOT (ASPARTATE AMINO TRANSFER) 2024-05-13 21:55:00 Adum, Geeta Zenaida [facility] CREATININE 2024-05-13 21:55:00 Adum, Geeta Zenaida [facility] ALANINE AMINO TRANSFERASE(SGPT 2024-05-13 21:55:00 Adum, Geeta Zenaida [facility] LACTATE DEHYDROGENASE 2024-05-13 21:55:00 Adum, Geeta Zenaida [facility] URIC ACID 2024-05-13 21:55:00 Adum, Geeta Zenaida [facility] CBC WITH DIFF 2024-05-13 21:55:00 Adum, Geeta Estevez [facility] GLYCOSYLATED HEMOGLOBIN (A1C) 2024-05-13 21:55:00 Adum, Geeta Zenaida [facility] HB ABO GROUPING 2024-05-13 21:55:00 Adum, Geeta Shaffer [facility] HIV 1/2 AG-AB WITH REFLEX 2024-05-13 21:55:00 Adum, Geeta Estevez [facility] URINE DRUG (IMMUNOASSAY) - COMPREHENSIVE DRUG SCREEN 2024-05-13 21:24:00 Adum, Geeta Estevez [facility] GC & CHLAMYDIA AMPLIFIED ASSAY 2024-05-13 21:24:00 Adum, Geeta Estevez [facility] HIGH RISK HPV-THIN PREP 2024-05-13 21:24:00 Adum, Justyna Estevez [facility] TRICHOMONAS AMPLIFIED ASSAY 2024-05-13 21:24:00 Adum, Geeta Estevez [facility] PAP SMEAR-LIQUID BASED-CP 2024-05-13 21:24:00 Adum, Geeta Estevez [facility] POCT TEST 2024-05-13 20:56:00 Adum, Geeta Estevez [facility] POCT URINALYSIS W/O SPECIFIC GRAVITY 2024-05-13 20:56:00 Adum, Geeta Estevez [facility] CT, abdomen + pelvis, w/wo contrast 2023-04-30 00:00:00 [facility] US, transvaginal 2023-04-24 00:00:00 [facility] Hysteroscopy Biopsy 2023-02-27 00:00:00 [facility] Plan of Care Planned Activity Planned Date Details Comments Source Diagnostic Test Pending 2023-07-27 00:00:00 urinalysis, dipstick [code = urinalysis, dipstick] [facility] Diagnostic Test Pending 2023-07-27 00:00:00 infectious disease panel [code = infectious disease panel] [facility] Diagnostic Test Pending 2023-07-27 00:00:00 infectious disease panel [code = infectious disease panel] [facility] Encounters Start Date/Time End Date/Time Encounter Type Admission Type Attending [facility] Care Department Encounter ID Source 2022-03-25 08:17:02 Outpatient Zunilda Tarango [facility] [id number] [facility] 2021-04-17 14:29:20 Outpatient Zunilda Tarango [facility] [id number] [facility] 2021-04-17 14:20:52 Outpatient Zunilda Tarango [facility] [id number] [facility] 2021-04-17 14:20:17 Outpatient [facility] [id number] [facility] 2024-06-07 11:00:00 2024-06-07 11:00:00 Outpatient GEETA ALMANZA [facility] [id number] [facility] 2024-05-24 00:00:00 2024-05-24 09:27:15 [facility]phone [facility] [id number] [id number] [id number] [facility] 2024-05-23 09:00:00 2024-05-23 09:52:01 Outpatient GEETA ALMANZA [facility] [id number] [facility] 2024-05-23 09:00:00 2024-05-23 09:52:01 Nurse Visit Nurse, [facility] Geeta Berry [facility] [id number] 350.1.13.10 4.2.7.2.686 [id number] [facility] 2024-05-20 09:00:00 2024-05-20 09:00:00 Outpatient R [facility] [id number] [facility] 2024-05-17 00:00:00 2024-05-17 12:59:58 Telephone Adum, Geeta Estevez [facility] [id number] 350.1.13.10 4.2.7.2.686 [id number] [facility] 2024-05-17 00:00:00 2024-05-17 10:30:21 Telephone Adcesar Geeta Estevez [facility] [id number] 350.1.13.10 [id number] [id number] [facility] 2024-05-16 09:30:00 2024-05-16 09:58:38 Driver Trainer Visit 2, [facility] Freddy Panchal [facility] 1.2.840.114 350.1.13.10 4.2.7.2.686 [id number] [facility] 2024-05-16 09:30:00 2024-05-16 09:58:38 Outpatient R FREDDY PANCHAL KARIN FOX, KARIN [facility] [id number] [facility] 2024-05-13 16:00:00 2024-05-13 16:00:00 Driver Trainer Visit 2, [facility] Geeta L 2, [facility] [id number] 350.1.13.10 4.2.7.2.686 [id number] [facility] 2024-05-13 14:30:00 2024-05-13 15:35:08 Outpatient R GEETA BERRY [facility] [id number] [facility] 2024-05-13 14:30:00 2024-05-13 15:35:08 Initial Visit Geeta Berry [facility] [id number] 350.1.13.10 4.2.7.2.686 [id number] [facility] 2023-07-27 00:00:00 2023-07-27 00:00:00 Elina Hernandez, FLOORPERSON: [address], [place] [address] , Ph. [facility] - GC_GCBZW_Charmaine Juarez* [id number] [facility] 2023-06-24 00:00:00 2023-06-24 00:00:00 Outpatient GC_GCBZW_Ka diyala_S PRIV PRIV [id number] [facility] 2023-05-11 00:00:00 2023-05-11 00:00:00 Outpatient GC_GCBZW_Ka diyala_S PRIV PRIV [id number] [facility] 2023-05-08 00:00:00 2023-05-08 00:00:00 Outpatient GC_GCBZW_Ka diyala_S PRIV PRIV [id number] [facility] 2023-05-08 00:00:00 2023-05-08 00:00:00 Sandra George PA: [address], [place] [address] , Ph. [facility] - GC_GCBZW_Charmaine Juarez* [id number] [facility] 2023-04-30 00:00:00 2023-04-30 00:00:00 Outpatient GC_GCBZW_Ka diyala_S PRIV PRIV [id number] [facility] 2023-04-30 00:00:00 2023-04-30 00:00:00 JAMES Saavedra: [address], [place] [address] , Ph. [facility] - GC_GCBZW_Charmaine florez Larry* [id number] [facility] 2023-04-24 00:00:00 2023-04-24 00:00:00 Outpatient GC_GCBZW_Ka diyala_S PRIV PRIV [id number] [facility] 2023-04-24 00:00:00 2023-04-24 00:00:00 Marcy Appiah MD: [address], [place] [address] , Ph. [facility] - GC_GCBZW_Charmaine florez Larry* [id number] [facility] 2023-04-20 00:00:00 2023-04-20 00:00:00 Outpatient GC_GCBZW_Ka diyala_S [facility] PRIV [id number] [facility] 2023-04-20 00:00:00 2023-04-20 00:00:00 JAMES Saavedra: [address], [place] [address] , Ph. [facility] - GC_GCBZW_Charmaine florez Larry* [id number] [facility] 2023-03-31 00:00:00 2023-03-31 00:00:00 Outpatient GC_GCBZW_Ka diyala_S PRIV PRIV [id number] [facility] 2023-03-20 00:00:00 2023-03-20 00:00:00 Outpatient GC_GCBZW_Ka diyala_S PRIV PRIV [id number] [facility] 2023-02-25 00:00:00 2023-02-25 00:00:00 Outpatient GC_GCBZW_Ka diyala_S PRIV PRIV [id number] [facility] 2023-02-25 00:00:00 2023-02-25 00:00:00 Outpatient GC_GCBZW_Ka diyala_S PRIV PRIV [id number] [facility] 2023-02-25 00:00:00 2023-02-25 00:00:00 Outpatient GC_GCBZW_Ka diyala_S PRIV PRIV [id number] [facility] 2022-11-05 00:00:00 2022-11-05 00:00:00 Outpatient GC_GCBZW_Ka diyala_S PRIV PRIV [id number] [facility] 2022-11-04 00:00:00 2022-11-04 00:00:00 Outpatient GC_GCBZW_Ka diyala_S PRIV PRIV [id number] [facility] 2022-10-31 00:00:00 2022-10-31 00:00:00 Outpatient GC_GCBZW_Ka diyala_S PRIV PRIV [id number] [facility] 2022-10-31 00:00:00 2022-10-31 00:00:00 Outpatient GC_GCBZW_Ka diyala_S PRIV PRIV [id number] [facility] 2022-10-20 00:00:00 2022-10-20 00:00:00 Outpatient GC_GCBZW_Ka diyala_S PRIV PRIV [id number] [facility] 2022-10-16 00:00:00 2022-10-16 00:00:00 Outpatient GC_GCBZW_Ka diyala_S PRIV PRIV [id number] [facility] 2021-02-22 00:00:00 2021-02-22 00:00:00 ambulatory STLMLC STLMLC [id number] [facility] 2018-09-22 23:58:00 2018-09-22 23:58:00 Emergency E MHNW MHNW 7507 MHNW Results Test Description Test Time Test Comments Results Result Co mments Source [id number] 20:56:00* Test Item Value Reference Range Interpretation Comme nts POCT PREG (test code = 1605) Positive On board controls acceptable with C Line (test code = 3574) Yes POCT PREG LOT # (test code = 3575) POCT PREG TEST DATE ( test code = 3576) [facility] [id number] 00:00:00* Test Item Value Reference Range Interpretation Comme nts chlamydia trachomatis (test code = chlamydia trachomatis) 0 ppm 10.500-32.000 varicella zoster virus (javad n herpesvirus 3) (test code = varicella zoster virus (human herpesvirus 3)) 0 ppm 10.500-32.000 treponema pallidum (syphilis ) (test code = treponema pallidum (syphilis)) 0 ppm 10.500-32.000 haemophilus ducreyi (chancro id) (test code = haemophilus ducreyi (chancroid)) 0 ppm 10.500-32.000 herpes simplex virus 1 (test code = herpes simplex virus 1) 0 ppm 10.500-32.000 herpes simplex virus 2 (test code = herpes simplex virus 2) 14.879 ppm 10.500-32.000 A mpox (monkeypox) (test code = mpox (monkeypox)) 0 ppm 10.500-32.000 [facility]stick) panel - [id number] 15:02:19* Test Item Value Reference Range Interpretation Comme nts Leukocytes (test code = Leukocytes) Negative Nitrite (test code = Nitrite) negative Urobilinogen (test code = Urobilinogen) Normal Protein (test code = Protein) Negative pH (test code = pH) 6.0 Blood (test code = Blood) Negative Specific [place] (test code = Specific [place]) 1.030 Ketone (test code = Ketone) Negative Bilirubin (test code = Bilirubin) Negative Glucose (test code = Glucose) 2+ Appearance (test code = Appearance) Clear Color (test code = Color) Pale Yellow [facility] Notes Date/Time Note Provider Source 2024-05-24 09:19:00 Name and verified, pt states she is having a lot of pressure and has not used the bathroom in 3 days and is constipated. Pt states she is drinking about 3-4 water bottles of water a day. Pt states she has not tried any medication over the counter. Informed pt I will send in safe medication list to her via [employer]. Pt denies any rectal bleeding. Encouraged hydration, and eating prunes or drinking prune juice, and that she may try Miralax 3-4 times a day, if symptoms persist or worsen to go to ER for further evaluation. Pt verbalized understanding. Cathy Souza RN 05/24/2024 9:26 AM ICAN SIGN LANGUAGE TEACHER Cathy Souza RN [facility] 2024-05-24 09:10:57 Pt calling back. Weller [facility] 2024-05-24 09:03:11 Attempted to reach pt, no answer, left a vm. Cathy Souza RN 05/24/2024 9:03 AM [facility] 2024-05-24 08:57:57 Samuel Whipple is a 28 year old female Patient is currently 4 months and has been constipated for the past 2 days, severe pain from waist down and a lot of pressure and would like to speak with a nurse German [facility] 2024-05-17 12:50:15 Name and verified, pt was informed she will need to come by clinic to package pick up proof of . Pt verbalized understanding. Pt will come to clinic tomorrow morning. Cathy Souza RN 05/17/2024 12:51 PM Souza RN [facility] 2024-05-17 12:18:18 Pt is requesting prof of paper to be emailed to her. [facility] Sabrina Weller [facility] 2024-05-17 09:49:23 Contacted patient to schedule diabetic/nutrition teaching with RN. Diabetic teaching scheduled. Supplies ordered. Allergies verified. I asked patient if she is allergic to all NSAIDs, patient states "yes all of them. I break out in hives and my tongue swells". Referral ordered for ophthalmology for diabetic eye exam. Baseline EKG ordered. Patient advised she will receive a call for ophthalmology appointment and EKG can be completed at her earliest convenience at the hospital. Patient advised ultrasound dating shows she is 16 weeks 4 days today with an NICHOLAS of 10/28/24. No other questions or concerns at this time Magnolia Mejia RN 05/17/2024 10:27 AM [facility] 2024-05-13 16:00:00 Images from the original note were not included. Venipuncture collection performed by clean technique on the right anticubitus. Total of 1 attempts were made. Slight pressure and a bandage/dressing were applied to the site(s). The patient experienced no complications. The following specimens were processed according to instructions and sent to [facility] laboratories per lab order on 05/13/2024: LT BLUE SST 4 RED 1 LAV 3 PPT DK GREEN (LiHep) DK GREEN (SodH) JIMÉNEZ DK BLUE (K2) DK BLUE (S) ACD Blood Culture NIPT/NTD [facility] 2024-05-13 14:30:00 Addended by: MAGNOLIA MEJIA on: 05/18/2024 11:10 AM Modules accepted: Orders [facility] 2024-05-13 14:30:00 Age: [age] year old GA: 10w3d Samuel Whipple is a 28 year old [id number] at 10w3d by LMP presents for Initial OB visit today. Patient is unsure of her LMP, hx of irregular cycles due to PCOS, gets a period every 3 months. Reports cramps but denies vaginal bleeding. She reports some nausea with occasional vomiting Single. Sonogram confirmed a viable SIUP Assessment/Plan High risk , antepartum (primary encounter diagnosis) Discussed do's and don'ts of , safe foods, safe medications. NOB folder given We discussed course, labs, aneuploidy and genetic carrier screening and ultrasounds. Expectations for weight gain this include 11-20 pounds. Exercise in discussed and encouraged. aneuploidy options were reviewed including NIPT: cFDNA test and 2nd trimester QUAD screen. The benefits and short falls of these screening tests were reviewed. Also discussed diagnostic tests: CVS vs amniocentesis. She is interested in genetic testing- will order once dating is established. Reviewed Zika virus precautions .Discussed about COVID-19/flu precautions. Social distancing, frequent hand washings, signs/symptoms for testing and to follow CDC recommendations discussed. Vaccinations on discussed I discussed the call schedule and that I deliver here at [facility]. I discussed that I have two partners, Dr. Pryor and Dr. Caba and that they may deliver her or take care of her during her . I discussed that at [facility] we do not have a NICU, and that high risk pregnancies or deliveries less than 36 weeks will be transferred to [place]. All questions were answered. NOB labs today precautions reviewed Encouraged to call if have any additional questions or concerns. Plan: POCT Urinalysis w/o Specific [place], POCT Test, [facility] or [facility] Only - Rpr, Cbc with Diff, Hcv Antibody, Hepatitis B Surface Antigen, HIV 1/2 Ag-Ab with Reflex, Workup, Blood Bank, Rubella Screen IgG, Urine Culture, Urine Drug (Immunoassay) - Comprehensive Drug Screen, VZV Antibody Screen, PAP Smear-Liquid Based, HIGH RISK HPV-THIN PREP, GC & CHLAMYDIA AMPLIFIED ASSAY, TRICHOMONAS AMPLIFIED ASSAY, Glycosylated Hemoglobin (A1C), Protein Quant U/24h, Creatinine U 24 Hr, Urine Drug (Immunoassay) - Comprehensive Drug Screen, PAP Smear-Liquid Based, HIGH RISK HPV-THIN PREP, GC & CHLAMYDIA AMPLIFIED ASSAY, TRICHOMONAS AMPLIFIED ASSAY, Uric Acid, Creatinine, SGOT (Aspartate Amino Transfer), Alanine Amino Transferase(Sgpt, Lactate Dehydrogenase, CONSULT MATERNAL MEDICINE ULTRASOUND Multiple Gestation: No, OB Ultrasound Transabdominal, Limited (<14 wks), REFERRAL MATERNAL MEDICINE FACULTY/FELLOW Reason for referral - please evaluate and treat for: Preexisting DM- currently on Metformin. Need co- managment for her medications/ adequate control Pre-existing type 2 diabetes mellitus in in second trimester - Diagnosed with DM over 5 years ago. Has never been managed by a PCP or seen an diesel engine erector, medication, metformin was prescribed by her gear design engineer - Discussed DM as it relates to , the need for strict/good glycemic control to prevent congential malformations, complications: GTHN, macrosomia, FGR, labor complications, c-sections/operative deliveries and complications - Send for diabetic/nutrition teaching - Get H1AC. For now continue with Metfotmin 500mg BID - Will get eye test, baseline EKG/PIH labs - Start LDA - MFM consult to assist in medication/ glycemic control Plan: CONSULT MATERNAL MEDICINE ULTRASOUND Multiple Gestation: No, OB Ultrasound Transabdominal, Limited (<14 wks), REFERRAL MATERNAL MEDICINE FACULTY/FELLOW Reason for referral - please evaluate and treat for: Preexisting DM- currently on Metformin. Need co- managment for her medications/ adequate control Morbid obesity Obesity in , antepartum, unspecified trimester - Reviewed the risks associated obesity in - GTHN, Macrosomia, IUGR, labor dsytocia which could lead to with increased risk of wound breakdown. Discussed appropriate weight gain for her BMI (15-20lbs), healthy eating with regular moderate intensity exercise Plan: OB Ultrasound Transabdominal, Limited (<14 wks), REFERRAL MATERNAL MEDICINE FACULTY/FELLOW Reason for referral - please evaluate and treat for: Preexisting DM- currently on Metformin. Need co- managment for her medications/ adequate control History of herpes genitalis - Notify me of any outbreaks or prodromal symptoms during - Start antiviral suppression at 35/36 wks Vapes THC - Risks associated with THC use in reviewed - Advised to quit Return to clinic in 4 weeks. Discussed treatment options. Medications as ordered. Greater than 45 minutes was spent face to face with the patient during this visit. At least greater than 50% spent face to face with patient on education of diagnoses, counseling, and discussion of test results with the patient. Details of the performed examinations were reviewed in detail with the patient. In addition, the reasons for possible further testing and evaluation and possible diagnoses were explained to the patient Future Appointments In 2 days [facility] US ROOM 2 [facility] 3 [address] MD [facility] Geeta Berry MD 05/14/2024 11:16 AM [facility]
--- NOTE | 2024-05-24 12:38 | RAD REPORT ---
EXAM:OB Limited CLINICAL HISTORY: with vaginal bleeding TECHNIQUE: Limited OB ultrasound performed FINDINGS: Single live intrauterine in cephalic presentation. Fundal placenta. No subchorionic/retroplacental bleed Cardiac activity 153 bpm. Normal amniotic fluid. Femur length 2.5 cm 17 weeks 5 days. Cervix 4.2 cm. Cervix is closed. IMPRESSION: Single live intrauterine with an estimated gestational age 17 weeks 5 days 10/27/2024 No gross abnormality on this limited exam. If a survey is desired it can be performed on a nonemergent basis.
--- NOTE | 2024-05-24 12:39 | RAD REPORT ---
EXAM:TRANSVAG OB CERVIX ASSESSMENT TECHNIQUE: Transvaginal sonographic evaluation of the cervix performed. CLINICAL HISTORY: with vaginal bleeding FINDINGS: Cervix 4.2 cm. No placenta previa. The cervix is closed. IMPRESSION: Normal evaluation of the cervix
[2024-05-24 13:09] LABS: Absolute Eosinophils 0.2 K/uL (0-0.5); Absolute Lymphocytes (CBC) 2.6 K/uL (0.7-4.9); Absolute Monocytes 0.4 K/uL (0.1-1.3); Absolute Neutrophil 5.1 K/uL (1.8-8.0); Basophils % 0.6 % (0-1.3); Eosinophils % 1.9 % (0-4.4); Hematocrit 37.6 % (36.0-45.0); Hemoglobin 13.4 g/dL (12.0-15.0); Lymphocytes % 31.2 % (15.3-44.8); MCH 30.8 pg (27.0-35.0); MCHC 35.5 g/dL (32.0-36.0); MCV 86.9 fL (80-100); MPV 6.8 fL (7.6-11.3); Monocytes % 4.5 % (3.3-12.3); Neutrophils % 61.8 % (41.7-73.7); Nucleated Red Blood Cells % 0.1 % (0-0); Platelets 305 thou/uL (152-406); RBC Red Blood Cell Count 4.33 M/uL (3.86-4.86); Red Cell Distribution Width 13.3 % (12.1-15.2)
[2024-05-24 13:32] LABS: Anion Gap 8.3 mEq/L (5.0-15.0); Potassium 3.3 mEq/L (3.5-5.1)
[2024-05-24 14:12] LABS: Specific Gravity 1.027 (1.005-1.030)
[2024-05-24 14:13] LABS: Specific Gravity 1.027 (1.005-1.030); Urine Bacteria None Seen /HPF (<20); Urine Bilirubin NEGATIVE (Negative); Urine Blood Negative (Negative); Urine Clarity Extremely Turbid (Clear); Urine Color Yellow (Yellow); Urine Culture Reflex Order NOT NEEDED; Urine Glucose 1+ (Negative); Urine Ketones 4+ (Over) (Negative); Urine Microscopic Reflex YN ORDER UMIC; Urine Mucus 4+ /HPF (None Seen); Urine Nitrite NEGATIVE (Negative); Urine Protein 1+ (Negative); Urine RBC <5 /HPF (None Seen); Urine Urobilinogen Normal (Normal); Urine WBC <5 /HPF (<5)
--- NOTE | 2024-05-24 15:11 | ER ---
Nurse's Notes [facility] Name: Florence Anguiano Age: 28 yrs Sex: Female : 1995 Arrival Date: 05/24/2024 Time: 11:57 Bed DX3 Private MD: Diagnosis: Threatened ;Abnormal uterine and vaginal bleeding, unspecified Presentation: 05/24 12:44 Chief complaint: Patient states: Pt reports constipation and lower abdominal pain/back ld1 pain. Pt reports being 4 months . Minimal spotting since this morning. Coronavirus screen: At this time, the client does not indicate any symptoms associated with coronavirus-19. Ebola Screen: No symptoms or risks identified at this time. Initial Sepsis Screen: Does the patient meet any 2 criteria? No. Patient's initial sepsis screen is negative. Does the patient have a suspected source of infection? No. Patient's initial sepsis screen is negative. Risk Assessment: Do you want to hurt yourself or someone else? Patient reports no desire to harm self or others. Onset of symptoms was May 24, 2024. 12:44 Method Of Arrival: Ambulatory ld1 12:44 Acuity: HELENA 3 ld1 Triage Assessment: 12:46 General: Appears in no apparent distress. comfortable, Behavior is calm, cooperative, ld1 appropriate for age. Pain: Complains of pain in back and abdomen Pain does not radiate. Pain currently is 8 out of 10 on a pain scale. Quality of pain is described as crampy, throbbing. EENT: No signs and/or symptoms were reported regarding the EENT system. Neuro: Level of Consciousness is awake, alert, obeys commands, Oriented to person, place, time, situation. Cardiovascular: Capillary refill < 3 seconds Patient's skin is warm and dry. Respiratory: Airway is patent Respiratory effort is even, unlabored. GI: Abdomen is round obese. : Reports vaginal bleeding that is light flow. Historical: - Allergies: 12:46 Tylenol; ld1 - PMHx: 12:46 Diabetes - NIDDM; ld1 - Immunization history:: Adult Immunizations up to date. - Infectious Disease History:: Denies. - Social history:: Smoking status: Patient denies any tobacco usage or history of. - Family history:: not pertinent. - Hospitalizations: : No recent hospitalization is reported. Screenin:22 [facility] ED Fall Risk Assessment (Adult) History of falling in the last 3 months, jb4 including since admission No falls in past 3 months (0 pts) Confusion or Disorientation No (0 pts) Intoxicated or Sedated No (0 pts) Impaired Gait No (0 pts) Mobility Assist Device Used No (0 pt) Altered Elimination No (0 pt) Score/Fall Risk Level 0 - 2 = Low Risk Oriented to surroundings, Maintained a safe environment. Abuse screen: Denies threats or abuse. Nutritional screening: No deficits noted. Tuberculosis screening: No symptoms or risk factors identified. Assessment: 15:22 Reassessment: Patient appears in no apparent distress at this time. Patient and/or jb4 family updated on plan of care and expected duration. Pain level reassessed. Patient is alert, oriented x 3, equal unlabored respirations, skin warm/dry/pink. Vital Signs: 12:44 Pulse 74; Resp 18; Temp 97.1(O); Pulse Ox 98% on R/A; Weight 109.77 kg; Height 5 ft. 2 ld1 in. ; Pain 0/10; 12:44 BP 131 / 68; ld1 12:44 Body Mass Index 44.26 (109.77 kg, 157.48 cm) ld1 12:44 Pain Scale: Adult ld1 ED Course: 12:00 Patient arrived in ED. cj3 12:08 Ariel Greco MD is Attending Physician. rn 12:29 TRANSVAG OB CERVIX ASSESSMENT In Process Unspecified. EDMS 12:30 US OB Limited In Process Unspecified. EDMS 12:46 Triage completed. ld1 12:46 Arm band placed on right wrist. ld1 13:01 Abo/rh Typing Sent. bc6 13:01 Basic Metabolic Panel Sent. bc6 13:01 CBC with Diff Sent. bc6 13:01 Quantitative Hcg Sent. bc6 13:01 Initial lab(s) drawn, by al, sent to lab. Inserted saline lock: 20 gauge in left bc6 antecubital area, using aseptic technique. Blood collected. Flushed with 10 mL NS. 14:06 Urine collected: clean catch specimen, cloudy. tm3 15:22 Patient has correct armband on for positive identification. Bed in low position. Call jb4 light in reach. Side rails up X 1. Provided Education on: discharge instructions.. 15:22 No provider procedures requiring assistance completed. IV discontinued, intact, jb4 bleeding controlled, No redness/swelling at site. Pressure dressing applied. Administered Medications: No medications were administered Medication: 15: VIS not applicable for this client. jb4 Outcome: 15:10 Discharge ordered by . rn 15: Discharged to home ambulatory, jb4 15: Condition: stable 15: Discharge instructions given to patient, Instructed on discharge instructions, follow up and referral plans. Demonstrated understanding of instructions, follow-up care, 15:25 Patient left the ED. jb4 Signatures: Dispatcher [employer] EDMS StephanieOmar tm3 Ariel Greco MD MD rn Bryson, James, RN RN jb4 Sanam Oleary RN RN ld1 Olga Lidia Calloway 6 Celi Jasso cj3
--- NOTE | 2024-05-24 15:11 | EDPHYS ---
Physician Documentation [facility] Name: Florence Anguiano Age: 28 yrs Sex: Female : 1995 Arrival Date: 05/24/2024 Time: 11:57 Bed DX3 Private MD: ED Physician Ariel Greco HPI: 05/24 14:01 This 28 yrs old Female presents to ER via Ambulatory with complaints of 14 wks rn Vaginal Bleeding, Constipation. 14:01 The patient presents to the emergency department with vaginal bleeding, that is light, rn with no clots. The estimated gestational age is 14 weeks. The patient has not experienced similar symptoms in the past. Patient reports constipation and vaginal bleeding/spotting. Noticed bleeding today. Denies any fever or chills. No trauma. No blood in stool. Mild lower abdominal cramping and constipation. Not sure of blood type but thinks is B positive. Historical: - Allergies: 12:46 Tylenol; ld1 - PMHx: 12:46 Diabetes - NIDDM; ld1 - Immunization history:: Adult Immunizations up to date. - Infectious Disease History:: Denies. - Social history:: Smoking status: Patient denies any tobacco usage or history of. - Family history:: not pertinent. - Hospitalizations: : No recent hospitalization is reported. ROS: 14:01 Constitutional: Negative for fever, chills, and weight loss, Cardiovascular: Negative rn for chest pain, palpitations, and edema, Respiratory: Negative for shortness of breath, cough, wheezing, and pleuritic chest pain, Abdomen/GI: Positive for lower abdominal cramping and constipation. : Positive for vaginal bleeding Exam: 14:01 Constitutional: This is a well developed, well nourished patient who is awake, alert, rn and in no acute distress. Cardiovascular: Regular rate and rhythm. No pulse deficits. Respiratory: No increased work of breathing, no retractions or nasal flaring. Abdomen/GI: Soft, non-tender Neuro: Awake and alert, GCS 15 Vital Signs: 12:44 Pulse 74; Resp 18; Temp 97.1(O); Pulse Ox 98% on R/A; Weight 109.77 kg; Height 5 ft. 2 ld1 in. ; Pain 0/10; 12:44 BP 131 / 68; ld1 12:44 Body Mass Index 44.26 (109.77 kg, 157.48 cm) ld1 12:44 Pain Scale: Adult ld1 MDM: 12:08 Medical Screening Exam initiated rn 15:09 Differential diagnosis: threatened Ab. Data reviewed: vital signs, nurses notes, laborer general test result(s), radiologic studies, ultrasound, and as a result, I will discharge patient. Counseling: I had a detailed discussion with the patient and/or guardian regarding the historical points, exam findings, and any diagnostic results supporting the discharge/admit diagnosis, lab results, radiology results, the need for outpatient follow up, to return to the emergency department if symptoms worsen or persist or if there are any questions or concerns that arise at home. Special discussion: I discussed with the patient/guardian in detail that at this point there is no indication for admission to the hospital. It is understood, however, that if the symptoms persist or worsen the patient needs to return immediately for re-evaluation. ED course: Ultrasound shows live single intrauterine at approximately 17 weeks 5 days. Rh+. Normal WBC. Will discharge home with OB follow-up and return precautions.. 15:09 ED course: No evidence of urinary tract infection or bacteriuria.. rn 05/24 12:09 Order name: Abo/rh Typing; Complete Time: 14:48 rn 05/24 12:09 Order name: Basic Metabolic Panel; Complete Time: 14:48 rn 05/24 12:09 Order name: CBC with Diff; Complete Time: 13:39 rn 05/24 12:09 Order name: Test, Urine; Complete Time: 14:48 rn 05/24 12:09 Order name: Quantitative Hcg; Complete Time: 14:48 rn 05/24 12:09 Order name: Urinalysis w/ reflexes; Complete Time: 14:48 rn 05/24 12:09 Order name: US OB Limited; Complete Time: 12:47 rn 05/24 12:29 Order name: TRANSVAG OB CERVIX ASSESSMENT; Complete Time: 12:47 EDMS 05/24 12:09 Order name: IV Saline Lock; Complete Time: 13:01 rn 05/24 12:09 Order name: Labs collected and sent; Complete Time: 13:01 rn 05/24 12:09 Order name: NPO; Complete Time: 13:01 rn Administered Medications: No medications were administered Disposition Summary: 03/04/25 15:10 Discharge Ordered Notes: Location: Home rn Problem: new rn Symptoms: have improved rn Condition: Stable rn Diagnosis - Threatened rn - Abnormal uterine and vaginal bleeding, unspecified rn Followup: rn - With: Private Physician - When: As needed - Reason: Recheck today's complaints, Re-evaluation by your physician Discharge Instructions: - Discharge Summary Sheet rn - Threatened Miscarriage rn - Vaginal Bleeding During , Second Trimester rn Forms: - Medication Reconciliation Form rn - Antibiotic sane rn - Prescription Opioid Use rn - Patient Portal Instructions rn - Leadership Thank You Letter rn - Work release form jb4 Signatures: Dispatcher [employer] Ariel Cummings MD MD rn Sanam Oleary RN RN ld1
[2024-05-24 15:46] VITALS: BP 131/68; TEMP 97.1; O2SAT 98
== END 2024-05-24 15:25 | disposition home or self-care (01) ==
LOC: ER 11:57
DX: O20.0 Threatened abortion (principal); Z3A.14 14 weeks gestation of pregnancy
CPT/HCPCS: 36415; 76815; 76817; 80048; 81001; 81025; 84702; 85025; 86900; 86901; 99283